=== PATIENT | female | born 1945 | race Caucasian/White ===

== ENCOUNTER 2018-03-24 09:46 | Emergency (ER) | payer MEDICARE, SELFPAY ==
[2018-03-24 09:53] VITALS: BP 178/83; PULSE 94; RESP 21; TEMP 37; O2SAT 95
--- NOTE | 2018-03-24 10:10 | DI.CT_ITS ---
SYMPTOMS/DIAGNOSIS: HEADACHE NONCONTRAST HEAD CT: There are no prior comparison exams. There is beam-hardening artifact seen along the skull. This could obscure a subtle hemorrhage. No mass or infarct is seen. The ventricles are normal in size. There is mild atrophy and mild white matter changes, consistent with small vessel disease. There is no evidence of fracture. There is mucus retention in the maxillary and some ethmoid sinuses. IMPRESSION: No acute abnormality.
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
--- NOTE | 2018-03-24 10:54 | DI.VRAD_ITS ---
EXAM: CT Head Without Intravenous Contrast EXAM DATE/TIME: 03/24/2018 10:11 AM CLINICAL HISTORY: 72 years old, female; Pain; Additional info: Headache TECHNIQUE: Axial computed tomography images of the head/brain without intravenous contrast. Coronal and sagittal reformatted images were created and reviewed. COMPARISON: No relevant prior studies available. FINDINGS: Limitations: There is extensive beam hardening artifact around the calvarium. There is asymmetric hyperdensity at the origin of the left sylvian fissure (8:19, 20). This could represent artifact versus subarachnoid hemorrhage. MRI may be helpful for further evaluation. Brain: There is asymmetric hyperdensity at the origin of the left sylvian fissure (8:19, 20). This could represent artifact versus subarachnoid hemorrhage. MRI may be helpful for further evaluation. There is moderate diffuse heterogeneity of the white matter attenuation, consistent with chronic white matter ischemic changes. Moderate cerebral atrophy Ventricles: Normal. No ventriculomegaly. Bones/joints: Normal. No acute fracture. Sinuses: Opacities in the ethmoid sinuses and maxillary sinuses and sphenoid sinuses may represent sinusitis. Mastoid air cells: Normal as visualized. No mastoid effusion. Soft tissues: Normal. IMPRESSION: 1. Opacities in the ethmoid sinuses and maxillary sinuses and sphenoid sinuses may represent sinusitis. 2. There is asymmetric extensive beam hardening artifact around the calvarium. There is hyperdensity at the origin of the left sylvian fissure (8:19, 20). This could represent artifact versus subarachnoid hemorrhage. MRI may be helpful for further evaluation. Dictated and Authenticated by: Clau Quintana MD. Ordering:ISH OSORIO MD
[2018-03-24 11:32] VITALS: BP 132/87; PULSE 74; RESP 20; TEMP 37.4
== END 2018-03-24 11:33 | disposition home or self-care (01) ==
PROVIDERS: Emergency Provider Emergency Medicine; PCP Family Medicine
DX: R42 Dizziness and giddiness (principal); R51 Headache; W54.1XXA Struck by dog, initial encounter; W01.198A Fall on same level from slipping, tripping and stumbling with subsequent striking against other object, initial encounter
CPT/HCPCS: 99284; 70450

== ENCOUNTER 2018-11-02 22:25 | Emergency (ER) | payer MEDICARE, SELFPAY ==
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
[2018-11-02 22:27] VITALS: BP 169/93; PULSE 101; RESP 16; TEMP 36.7; O2SAT 98
--- NOTE | 2018-11-02 22:35 | DI.CT_ITS ---
SYMPTOM/DIAGNOSIS: ALTERED MENTAL STATUS CRANIAL CT 11/02/[address] was performed. There is moderate generalized cerebral atrophy and there are prominent areas of periventricular white matter decreased attenuation consistent with microvascular ischemic changes. No evidence of acute intracranial hemorrhage, mass effect or midline shift. Mastoid air cells and paranasal sinuses are generally clear with minimal mucoperiosteal thickening noted in maxillary and ethmoid sinuses. The orbits appear intact. CONCLUSION: No evidence of acute intracranial process.
--- NOTE | 2018-11-02 22:35 | DI.RAD_ITS ---
SYMPTOM/DIAGNOSIS: ALTERED MENTAL STATUS PA AND LATERAL CHEST: 11/02/18 The heart is not enlarged. There is suggestion of increased radiodensity in the right lower lung field, no definite abnormality identified on the lateral view. Comparison with previous examination of 2006 shows fairly similar appearance at that time. No definite acute change. No pleural effusion seen. CONCLUSION: No evidence of acute disease.
[2018-11-02 22:43] LABS: Abs Immature Grans 0.01 k/cumm (0.0-0.09); Absolute Basophil Count 0.04 k/cumm (0.0-0.2); Absolute Eosinophil Count 0.16 k/cumm (0.0-0.7); Absolute Lymphocyte Count 1.82 k/cumm (1.2-3.4); Absolute Monocyte Count 0.52 k/cumm (0.11-0.7); Absolute Neutrophil Count 3.35 k/cumm (1.2-6.7); Basophils % 0.7; Eosinophils % 2.7; HCT 38.7 % (36.0-46.0); HGB 12.7 g/dL (12.0-15.5); Immature Grans % 0.2; Lymphocytes % 30.8; Mean Corp. HGB Concentration 32.8 g/dL (32.0-36.0); Mean Corpuscular Hemoglobin 30.8 pg (27.0-33.0); Mean Corpuscular Volume 93.7 fL (80-95); Mean Platelet Volume 10.6 fL (8.0-11.0); Monocytes % 8.8; Neutrophils % 56.8; Platelet Count 232 x1000/uL (130-400); RBC 4.13 m/cumm (4.00-5.20); RBC Distribution Width 12.7 % (11.7-14.6)
[2018-11-02 22:56] LABS: ALT 18 U/L (12-78); AST 13 U/L (15-37); Albumin 3.6 g/dL (3.4-5.0); Alkaline Phosphatase 72 U/L (46-116); Anion Gap 7.9 mmol/L (3-11); BUN 19 mg/dL (7-18); Bilirubin, Total 0.3 mg/dL (0.2-1.0); CO2 28.1 mmol/L (21.0-32.0); CREATININE 0.77 mg/dL (0.55-1.02); Calcium 8.7 mg/dL (8.5-10.1); Chloride 105 mmol/L (98-107); Glucose 126 mg/dL (70-100); Magnesium 1.9 mg/dL (1.8-2.4); Potassium 3.8 mmol/L (3.5-5.1); Sodium 141 mmol/L (136-145); Total Protein 6.8 g/dL (6.4-8.2)
[2018-11-02 23:08] LABS: ETHANOL BLOOD < 3.0 mg/dL (<3)
[2018-11-02 23:22] LABS: PTT Activated 23.6 sec (21.0-31.4); Prothrombin Time 10.2 sec (9.3-11.0)
--- NOTE | 2018-11-02 23:31 | DI.VRAD_ITS ---
EXAM: XR Chest, 2 Views EXAM DATE/TIME: 11/02/2018 10:36 PM CLINICAL HISTORY: 73 years old, female; Signs and symptoms; Other: Altered mental status TECHNIQUE: Imaging protocol: XR of the chest, 2 views. COMPARISON: No relevant prior studies available. FINDINGS: Lungs: Vague opacity within the medial aspect of the right lower lobe. Pleural space: No pneumothorax. No sizable pleural effusion. Heart/Mediastinum: No cardiomegaly. Bones/joints: Unremarkable. IMPRESSION: Vague opacity within the medial aspect of the right lower lobe, which may represent pneumonia in the correct clinical setting. Alternatively, this could just represent overlapping shadows of vascular markings with rib shadows. Dictated and Authenticated by: Karthik Vides MD. Ordering:ISH Martins MD
--- NOTE | 2018-11-02 23:36 | DI.VRAD_ITS ---
EXAM: CT Head Without Contrast EXAM DATE/TIME: 11/02/2018 10:36 PM CLINICAL HISTORY: 73 years old, female; Signs and symptoms; Altered mental status/memory loss TECHNIQUE: Imaging protocol: Axial computed tomography images of the head/brain without contrast. Coronal and sagittal reformatted images were created and reviewed. COMPARISON: CT HEAD WO 03/24/2018 10:21 AM FINDINGS: Brain: Age-related involutional changes and chronic microvascular ischemic disease. No evidence for acute transcortical infarct. No mass effect or midline shift. No extra-axial collection. No acute intracranial hemorrhage. Basal cisterns are patent. Ventricles: Normal. No ventriculomegaly. Bones/joints: Unremarkable. No acute fracture. Sinuses: Hypoplastic right maxillary sinus. Mastoid air cells: Visualized mastoid air cells are unremarkable. No mastoid effusion. Soft tissues: Unremarkable. IMPRESSION: No evidence for acute transcortical infarct, acute intracranial hemorrhage, or mass effect. Dictated and Authenticated by: Karthik Vides MD. Ordering:ISH Martins MD
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
[2018-11-02 23:56] LABS: Bilirubin Negative (Negative); Blood Negative (Negative); Clarity Clear; Glucose Negative (Negative); Ketones Trace mg/dL (Negative); Leukocyte Esterase Moderate (Negative); Nitrite Negative (Negative); Specific Gravity 1.015 (1.005-1.025); Urobilinogen 0.2 EU/dL (Up TO 0.2)
[2018-11-02] MEDS: QUEtiapine 25 MG TAB PO (23:57)
[2018-11-03 00:11] LABS: Epithelial Cells Moderate HPF (Negative); RBC Negative (0-2); WBC >50 HPF (0-5)
[2018-11-03 00:12] LABS: Bacteria Rare HPF (Negative); C & S Indicated? C&S Done As Ordered; Casts Negative LPF (Negative); Mucus Negative (Negative); Other Cells Moderate Renal (Negative)
--- NOTE | 2018-11-04 09:46 | NUR.NOTE ---
Nursing Note: Faxed to PCP office all the information from the patient ED visit for follow up. Sophie Colindres .
== END 2018-11-03 00:06 | disposition home or self-care (01) ==
PROVIDERS: Emergency Provider Emergency Medicine; PCP Family Medicine
DX: F03.91 Unspecified dementia, unspecified severity, with behavioral disturbance (principal)
CPT/HCPCS: 36415; 80053; 99285; 70450; 71046; 80320; 81003; 81015; 83735; 85025; 85610; 85730; 87086; 99284

== ENCOUNTER 2019-10-26 21:23 | Emergency (ER) | payer MEDICARE, SELFPAY ==
--- NOTE | 2019-10-26 21:14 | ED.GENADUL_ITS ---
Discharge Plan Disposition Patient Disposition: HOME Condition: Good Discharge Details Chief Complaint: RespSymp Clinical Impression: Dementia Primary Care Provider: Shan Gracia ED Provider: Genaro Aguayo Home Meds and New Rx's Prescriptions: Continued fluticasone propion-salmeterol [Advair Diskus] 1 PUFF blister with device 1 inh DAILY RF: 0 multivitamin 1 EACH capsule 1 tab PO DAILY RF: 0 ibuprofen [Advil] 200 MG tablet 1 tab PO PRN RF: 0 memantine 5 mg Tablet 2 tab PO BID RF: 0 meclizine 25 mg tablet 25 mg PO TID PRN (Reason: dizziness) Qty: 14 RF: 0 quetiapine [Seroquel] 25 mg tablet 25 mg PO QPM Qty: 10 RF: 0 Discharge Instructions Additional Instructions: Please return later today for drive-through testing for COVID. Orders will be faxed from the ED. We will have care management contact you later today to see what assistance we can offer. Contact primary care physician as well for help as well as to confirm her medications that she should be taking. Keep her in quarantine for the time being. Return to ED for mental status changes, difficulty breathing, vomiting, other concerns or problems. Referrals: Shan Gracia [Primary Care Provider] - Medical Decision Making Patient brought here after her was found at home. She has a slight cough. She is unable to give us any of the history. Since it is unknown what from and since patient unable to give history elected to screen for potential COVID. Her saturations are normal. Her exam is unremarkable. Laboratory studies were obtained and a noncontrast CT ordered. Patient's white count is normal with no evidence of lymphopenia. Platelet count is normal. Kidney function and liver function unremarkable. Ferritin, LDH, C- reactive protein are all normal. Noncontrast CT chest being preliminary read by radiology as 3 small groundglass nodules in the right lung. No consolidation. No pleural effusion. Also noted to have asymmetric left retroareolar glandular tissue. In the pandemic of COVID the groundglass nodules are very nonspecific but cannot completely rule out COVID by CT. Given her normal laboratory studies and lack of symptoms I doubt this is the case. I was able to get a hold of the patient's son Rafael who is in [facility]. It would be best for the patient not to be admitted to this hospital. It would be best for her to go back home with assistant shift supervisor and return tomorrow for COVID testing. She should remain in isolation in the meantime. At some point, she will need follow-up of the breast findings if they decide to pursue that. Son has agreed to come and get her tonight but it will take him 3 to 4 hours to get here. Plan will be to discharge the patient into the son's care. His brother is coming from [place]. Will have care management get in touch with the sons for further assistance as needed. Will have patient return for formal COVID testing tomorrow to drive-through test. 03:11 -son, Rafael, has arrived. I have spoken to him about drive-through testing for COVID in the morning. I have also discussed with him having our care managers contact him in the morning to see what help we can provide. Patient's primary care physician should be contacted in the morning as well. Otherwise, quarantine the patient until testing has returned. Continue medications as before. Return to ED if any issues. Medical Records Medical records reviewed: Yes I reviewed the patient's medical records. Lab Data Lab results reviewed: Yes I reviewed the patient's lab results. HPI General Mode of arrival: EMS . Date/Time Provider Initiated Documentation: 10/26/19 21:27 . Information obtained by: patient, EMS and old records reviewed . HPI Narrative: Patient brought in by EMS for evaluation after her was found at home. Patient is demented and unable to give us any information. By EMS report the police found her wandering the streets of [place] very late this afternoon. They brought her home and was not there but it was thought maybe he had gone out to look for her or shopping. Police left her there with the understanding to come back in a couple hours and check on her. When they arrived the was still not present. They then entered the house and found him in the back bedroom. [employer] Engineer biomedical instrument technician on scene is also a miter grinder operator in the community. He called to speak to me regarding what to do with this patient. He noticed that she did have a cough but otherwise no complaints. She is demented and not able to provide any type of history. It was agreed to bring her here for screening. Mental health worker was present as well. They know her from the community. We are attempting to get family notification. Related Data Home Medications Medication Instructions Recorded Confirmed fluticasone propion-salmeterol 1 inh DAILY 01/01/13 03/24/18 [Advair Diskus] multivitamin 1 tab PO DAILY 01/01/13 03/24/18 ibuprofen [Advil] 1 tab PO PRN 01/18/14 03/24/18 meclizine 25 mg PO TID PRN #14 tab 03/24/18 memantine 2 tab PO BID 03/24/18 03/24/18 quetiapine [Seroquel] 25 mg PO QPM #10 tab 11/02/18 Previous Rx's Medication Instructions Recorded meclizine 25 mg PO TID PRN #14 tab 03/24/18 quetiapine [Seroquel] 25 mg PO QPM #10 tab 11/02/18 Allergies Allergy/AdvReac Type Severity Reaction Status Date / Time amoxicillin Allergy Severe Hives Unverified 03/24/18 09:56 Penicillins Allergy Severe Hives Unverified 03/24/18 09:56 morphine Allergy Unknown Unverified 03/24/18 09:56 acetaminophen [From Percocet] AdvReac Nausea Unverified 03/24/18 09:56 hydrocodone [Hydrocodone] AdvReac Nausea Unverified 03/24/18 09:56 oxycodone HCl [From Percocet] AdvReac Nausea Unverified 03/24/18 09:56 General DIONICIO: 3 Review of Systems Narrative: Unobtainable due to dementia. [facility] Medical History Anxiety (Chronic) Dementia (Chronic) Surgical History No significant past surgical history (Acute) Social History Smoking/Tobacco Use Status: Never Alcohol Intake: never Drug use: Never Substance use type: does not use Do you feel safe in your relationship?: Yes Additional Social history: unable to assess. Exam Narrative Exam Narrative: Vitals: Afebrile. Slightly elevated blood pressure. Otherwise normal vital signs. Normal room air pulse oximetry. Const: WDWN elderly female in NAD. HEENT: NC/AT. Normal facial exam. Normal OP. Eyes: Normal conjunctiva and sclera. Neck: Supple. Trachea midline. Lungs: Normal respiratory effort. Lungs are clear. Cor: RRR without murmur/gallop. Good radial pulses. GI: Soft. NT/ND. No guarding or rebound. Neuro: A+O x 1. Normal speech, mentation, gait. Cranial nerves II - XII grossly intact. No gross motor or sensory deficit. Ext: No C/C/E. Skin: Warm and dry without rash.
[2019-10-26 21:15] VITALS: BP 143/85; PULSE 89; RESP 19; TEMP 36.5; O2SAT 99
--- NOTE | 2019-10-26 21:15 | DI.CT_ITS ---
EXAM: CT CHEST WO CLINICAL HISTORY: demented; cough; no other history. TECHNIQUE: Imaging protocol: Axial computed tomography images were obtained and coronal and sagittal reformatted images were created and reviewed. COMPARISON: No exams were available for comparison FINDINGS: Tracheobronchial tree: Patent where visualized. Mediastinum and Rose Marie: No dominant adenopathy or fluid collection. Pulmonary parenchyma: No consolidation or dominant measurable mass. No architectural distortion. Ther e are a few tiny ground-glass nodules seen in the right lung. There is a 5 mm nodule seen laterally in the right lower lobe (series 4, image 360). There is a 4 mm nodule seen in the right middle lobe measuring 4 mm (series 4, image 377). Pleura: No effusion or pneumothorax. Heart: The heart is not dilated. Mild coronary artery calcifications are seen. No pericardial effusi on. Aorta: Thoracic aorta non-dilated. Atherosclerosis. Upper abdomen: Unremarkable. Lymph nodes: Within normal limits. Bones:Degenerative changes. Soft tissues: There is asymmetric dense tissue seen in the retroareolar region of the left breast. A mass cannot be excluded. Correlation with mammogram is recommended. IMPRESSION: 1. No CT chest findings to suggest COVID- 19 are present. 2. Nonspecific subcentimeter ground-glass nodules in the right lung. An infectious or inflammatory p rocess cannot be excluded. DATA REPOSITORY: All CT scans at this facility are submitted to the National Radiology Data Registry (NRDR) Dose Index Registry (DIR) with the [employer] (ACR). RADIATION OPTIMIZATION: All CT scans at this facility use at least one of these dose optimization te chniques: automated exposure control; mA and/or kV adjustment per patient size (includes targeted exa ms where dose is matched to clinical indication); or iterative reconstruction.
[2019-10-26 21:45] LABS: Abs Immature Grans 0.01 k/cumm (0.0-0.09); Absolute Basophil Count 0.03 k/cumm (0.0-0.2); Absolute Eosinophil Count 0.03 k/cumm (0.0-0.7); Absolute Lymphocyte Count 1.59 k/cumm (1.2-3.4); Absolute Monocyte Count 0.57 k/cumm (0.11-0.7); Absolute Neutrophil Count 4.46 k/cumm (1.2-6.7); Basophils % 0.4; Eosinophils % 0.4; HGB 12.5 g/dL (12.0-15.5); Immature Grans % 0.1 %; Lymphocytes % 23.8; Mean Corp. HGB Concentration 33.8 g/dL (32.0-36.0); Mean Corpuscular Hemoglobin 31.7 pg (27.0-33.0); Mean Corpuscular Volume 93.9 fL (80-95); Mean Platelet Volume 10.3 fL (8.0-11.0); Monocytes % 8.5; Neutrophils % 66.8; Platelet Count 257 x1000/uL (130-400); RBC 3.94 m/cumm (4.00-5.20); RBC Distribution Width 12.7 % (11.7-14.6); White Blood Cell Count 6.69 k/cumm (4.4-10.8)
[2019-10-26 21:59] LABS: ALT 21 U/L (14-59); AST 15 U/L (15-37); Alkaline Phosphatase 53 U/L (46-116); Anion Gap 3.1 mmol/L (3-11); BUN 24 mg/dL (7-18); Bilirubin, Total 0.8 mg/dL (0.2-1.0); C-Reactive Protein 0.13 mg/dL (0.0-0.3); CO2 27.9 mmol/L (21.0-32.0); CREATININE 0.81 mg/dL (0.55-1.02); Calcium 9.1 mg/dL (8.5-10.1); Chloride 104 mmol/L (98-107); Glucose 109 mg/dL (74-106); LDH 135 U/L (81-234); Potassium 3.2 mmol/L (3.5-5.1); Sodium 135 mmol/L (136-145); Total Protein 7.2 g/dL (6.4-8.2)
[2019-10-26 22:23] LABS: Ferritin 127 ng/mL (8-252)
--- NOTE | 2019-10-26 22:28 | NUR.NOTE ---
Arrives via [place] for evaluation. Pt has hx of dementia, was found out wandering, brought home by PD, found in home for unknown reason. Reported cough, pt brought in for evaluation. Pt arrives alert, unable to state why she is here. Pt asking to go home. LSCTA. Denies pain. Pt wearing multiple shirts. Has no c/o.
--- NOTE | 2019-10-26 22:39 | DI.VRAD_ITS ---
PROCEDURE INFORMATION: Exam: CT Chest Without Contrast Exam date and time: 10/26/2019 9:30 PM Age: 74 years old Clinical indication: Patient HX: Cough, demented: No other HX. Suspected for covid-19 TECHNIQUE: Imaging protocol: Computed tomography of the chest without contrast. Radiation optimization: All CT scans at this facility use at least one of these dose optimization techniques: automated exposure control; mA and/or kV adjustment per patient size (includes targeted exams where dose is matched to clinical indication); or iterative reconstruction. COMPARISON: CR XR CHEST 2V PA LATERAL 11/02/2018 10:59 PM FINDINGS: Lungs: No consolidation. There is a 5 mm ground-glass nodule in the right lower lobe , series 4, image 360. An additional 3 mm right lower lobe nodule is seen, series 4, image 366. There is a 4 mm ground-glass nodule in the right middle lobe, series 4, image 377. Pleural space: No pleural effusion. No pneumothorax. Heart: No cardiomegaly. No pericardial effusion. Mild coronary artery calcifications. Aorta: No aortic aneurysm. Lymph nodes: No pathologically enlarged lymph nodes. Liver: Subcentimeter hypodensity is seen in the liver, too small to characterize, series 2, image 55. Gallbladder and bile ducts: Gallstones are seen. Kidneys and ureters: Small hypodensity in the right kidney is likely a cyst. There are parapelvic renal cysts. Bones/joints: Unremarkable. No acute fracture. Soft tissues: There is asymmetric left retroareolar glandular tissue. An underlying mass cannot be excluded. IMPRESSION: 1. Three subcentimeter ground-glass nodules within the right lung. These are nonspecific, but may be due to an infectious or inflammatory etiology. No large areas of ground-glass opacity or consolidation are seen. Note that CT may be negative in the early stages of COVID-19. 2. Additional incidental/non-emergent findings, as above. Dictated and Authenticated by: Robbie Shell MD. Ordering:TAMIKA Lam MD
--- NOTE | 2019-10-27 00:24 | NUR.NOTE ---
Plan for pt son to come bean picker machine operator. Provided with juice.
[2019-10-27 03:12] VITALS: BP 131/69; PULSE 77; RESP 16; TEMP 37; O2SAT 98
--- NOTE | 2019-10-27 03:14 | NUR.NOTE ---
Pt intermittently sleeping on right side, even, unlabored resp. No coughing noted. Pt continues to have no c/o. Son in to pick pt up. to exit with steady gait.
--- NOTE | 2019-10-27 03:21 | NUR.NOTE ---
Olivier out to speak to pt son and review DC instructions
--- NOTE | 2019-10-28 09:18 | PDOC.ERCMPRO ---
- If Service Date Differs Date of service: 10/27/19 Time of Service: 09:18 Care Management Progress Note At the request of ED provider, MARIAM outreaches to patient's son Rafael at tel. number [phone]. There is no answer; message left offering assistance as needed.
== END 2019-10-27 03:20 | disposition home or self-care (01) ==
PROVIDERS: Emergency Provider Emergency Medicine; PCP Family Medicine
DX: F03.90 Unspecified dementia, unspecified severity, without behavioral disturbance, psychotic disturbance, mood disturbance, and anxiety (principal); R05 Cough; Z04.89 Encounter for examination and observation for other specified reasons; R92.8 Other abnormal and inconclusive findings on diagnostic imaging of breast; Z63.4 Disappearance and death of family member
CPT/HCPCS: 71250; 80053; 99284; 82728; 83615; 85025; 86140

== ENCOUNTER 2019-10-27 08:37 | Outpatient (CLI) | payer MEDICARE, SELFPAY ==
[2019-10-29 23:11] LABS: SARS-CoV-2 RNA Undetected (Undetected); SARS-CoV-2 Specimen Source Nasopharynx
== END 2019-10-27 08:57 ==
PROVIDERS: PCP Family Medicine; Visit Provider Emergency Medicine
DX: Z03.818 Encounter for observation for suspected exposure to other biological agents ruled out (principal)
CPT/HCPCS: U0003

== ENCOUNTER 2019-11-02 07:07 | Inpatient (IN) | payer MEDICARE, SELFPAY ==
[2019-11-02] VITALS (34 sets, daily range): BP systolic 94–146; BP diastolic 54–83; PULSE 63–98; RESP 14–18; TEMP 36–37; O2SAT 92–99
--- NOTE | 2019-11-02 07:08 | DI.RAD_ITS ---
EXAM: XR CHEST 1V IN DI DEPT CLINICAL HISTORY: <altered, combative> TECHNIQUE: 2D digital imaging was performed. COMPARISON: XR CHEST 2V PA LATERAL from 11/02/2018 CT CHEST WO from 10/26/2019 FINDINGS: LUNGS: The lungs are not well inflated. The questioned increased densities at the left lung base whi ch could represent pneumonia. No effusion is seen. There is no evidence of pulmonary edema. HEART: Normal. MEDIASTINUM: Normal. IMPRESSION: Question of left lower lobe pneumonia. DATA REPOSITORY: RADIATION DOSE DELIVERED:
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
[2019-11-02] MEDS: OLANZapine 10 MG VIAL IM (07:21)
[2019-11-02] MEDS: LORazepam 2 MG/ML VIAL IM (07:24)
[2019-11-02] MEDS: Haloperidol 5 MG/ML VIAL IM (07:25)
--- NOTE | 2019-11-02 08:13 | DI.CT_ITS ---
EXAM: CT HEAD WO CLINICAL HISTORY: altered, psychotic episode. TECHNIQUE: Imaging Protocol: Axial computed tomography images with coronal and sagittal reformatted images were created and reviewed COMPARISON: CT HEAD WO from 11/02/2018 FINDINGS: Ventricles and Extra axial spaces: Normal in size and morphology for the patient's age. Hemorrhage: None. Cerebral parenchyma: White matter changes of small vessel disease. Midline shift: None. Brainstem/Cerebellum: Normal. Calvarium: Normal. Visualized Paranasal sinuses/Mastoids: Clear. Soft Tissues: Mild mucosal thickening. IMPRESSION: No acute intracranial process. RADIATION DOSE DELIVERED: DATA REPOSITORY: All CT scans at this facility are submitted to the National Radiology Data Registry (NRDR) Dose Index Registry (DIR) with the [employer] (ACR). RADIATION OPTIMIZATION: All CT scans at this facility use at least one of these dose optimization te chniques: automated exposure control; mA and/or kV adjustment per patient size (includes targeted exa ms where dose is matched to clinical indication); or iterative reconstruction.
--- NOTE | 2019-11-02 08:20 | DI.VRAD_ITS ---
PROCEDURE INFORMATION: Exam: XR Chest, 1 View Exam date and time: 11/02/2019 8:14 AM Age: 74 years old Clinical indication: Other: Altered, combative TECHNIQUE: Imaging protocol: XR of the chest Views: 1 view. COMPARISON: CR XR CHEST 2V PA LATERAL 11/02/2018 10:59 PM FINDINGS: Lungs: Opacity in the medial left base may represent atelectasis or pneumonia. Pleural space: Unremarkable. No pleural effusion. No pneumothorax. Heart/Mediastinum: Unremarkable. No cardiomegaly. Bones/joints: Unremarkable. IMPRESSION: Opacity in the medial left base may represent atelectasis or pneumonia. Dictated and Authenticated by: Clau Quintana MD. Ordering:STEVAN Meza MD
--- NOTE | 2019-11-02 08:22 | DI.VRAD_ITS ---
PROCEDURE INFORMATION: Exam: CT Head Without Contrast Exam date and time: 11/02/2019 7:59 AM Age: 74 years old Clinical indication: Other: Altered psychotic episode TECHNIQUE: Imaging protocol: Computed tomography of the head without contrast. Radiation optimization: All CT scans at this facility use at least one of these dose optimization techniques: automated exposure control; mA and/or kV adjustment per patient size (includes targeted exams where dose is matched to clinical indication); or iterative reconstruction. COMPARISON: CT HEAD WO 11/02/2018 10:46 PM FINDINGS: Brain: There is moderate diffuse heterogeneity of the white matter attenuation, consistent with chronic white matter ischemic changes. Moderate cerebral atrophy No acute intracranial hemorrhage. Ventricles: Normal. No ventriculomegaly. Bones/joints: Unremarkable. No acute fracture. Sinuses: Mucosal thickening in the right maxillary sinus, left frontal sinus, and ethmoid sinuses may represent mild sinusitis Mastoid air cells: Visualized mastoid air cells are well aerated. Soft tissues: Unremarkable. IMPRESSION: No acute intracranial hemorrhage. Dictated and Authenticated by: Clau Quintana MD. Ordering:STEVAN Meza MD
[2019-11-02 08:31] LABS: Bilirubin Negative (Negative); Blood Negative (Negative); Clarity Sl Cloudy (Clear); Glucose Negative (Negative); Ketones Negative (Negative); Leukocyte Esterase Small (Negative); Nitrite Negative (Negative); Specific Gravity 1.015 (1.005-1.025); Urobilinogen 0.2 EU/dL (Up TO 0.2)
[2019-11-02 08:40] LABS: HCO3 (Venous) 31 mmol/L (22-28); O2 Sat (Venous) 93 % (70-80); TCO2 (Venous) 28 mmol/L (22-29); pCO2 (Venous) 47 mm/Hg (34-47); pH (Venous) 7.42 (7.35-7.45); pO2 (Venous) 65 mm/Hg (28-44)
[2019-11-02 08:44] LABS: Abs Immature Grans 0.01 k/cumm (0.0-0.09); Absolute Basophil Count 0.01 k/cumm (0.0-0.2); Absolute Eosinophil Count 0.03 k/cumm (0.0-0.7); Absolute Lymphocyte Count 0.74 k/cumm (1.2-3.4); Absolute Monocyte Count 0.34 k/cumm (0.11-0.7); Absolute Neutrophil Count 3.96 k/cumm (1.2-6.7); Basophils % 0.2; Eosinophils % 0.6; HCT 33.6 % (36.0-46.0); HGB 11.1 g/dL (12.0-15.5); Immature Grans % 0.2 %; Lymphocytes % 14.5; Mean Corpuscular Hemoglobin 31.2 pg (27.0-33.0); Mean Corpuscular Volume 94.4 fL (80-95); Monocytes % 6.7; Neutrophils % 77.8; Platelet Count 221 x1000/uL (130-400); RBC 3.56 m/cumm (4.00-5.20); RBC Distribution Width 12.8 % (11.7-14.6); White Blood Cell Count 5.09 k/cumm (4.4-10.8)
[2019-11-02 08:47] LABS: RBC 0-2 HPF (0-2)
[2019-11-02 08:48] LABS: Bacteria Many HPF (Negative); Casts 3-5 Fine Granular LPF (Negative); Crystals Rare Amorphous HPF (Negative); Epithelial Cells Few HPF (Negative); Mucus Trace (Negative); Other Cells Rare Renal (Negative)
[2019-11-02 08:49] LABS: C & S Indicated? Yes
[2019-11-02 08:53] LABS: Ammonia 34 umol/L (11-32)
[2019-11-02 09:04] LABS: Salicylate < 2.8 mg/dL (2.8-20.0)
[2019-11-02 09:05] LABS: Acetaminophen < 2 ug/mL (10-30)
[2019-11-02 09:06] LABS: ALT 15 U/L (14-59); AST 12 U/L (15-37); Albumin 2.8 g/dL (3.4-5.0); Alkaline Phosphatase 45 U/L (46-116); Anion Gap 5.6 mmol/L (3-11); BUN 14 mg/dL (7-18); Bilirubin, Total 0.4 mg/dL (0.2-1.0); CO2 30.4 mmol/L (21.0-32.0); CREATININE 0.72 mg/dL (0.55-1.02); Calcium 8.4 mg/dL (8.5-10.1); Chloride 109 mmol/L (98-107); Glucose 139 mg/dL (74-106); Potassium 3.4 mmol/L (3.5-5.1); Sodium 145 mmol/L (136-145); TSH (W/Ref FT4) 1.91 uIU/mL (0.36-3.74); Total Protein 5.7 g/dL (6.4-8.2)
[2019-11-02 09:19] LABS: ETHANOL BLOOD < 3.0 mg/dL (<3)
[2019-11-02 09:35] LABS: *AMPHETAMINES SCREEN URINE Negative (Negative); *BARBITURATES SCREEN URINE Negative (Negative); *BENZODIAZEPINES SCREEN URINE Negative (Negative); Cannabinoids THC Negative (Negative); Cocaine Screen,Urine Negative (Negative); METHADONE URINE SCREEN Negative (Negative); OPIATES URINE SCREEN Negative (Negative)
[2019-11-02 09:37] LABS: Lactate 0.6 mmol/L (0.6-1.4)
[2019-11-02 09:40] LABS: Tricyclic Antidepressants Negative (Negative)
[2019-11-02 09:52] LABS: C-Reactive Protein 0.12 mg/dL (0.0-0.3)
[2019-11-02] MEDS: cefTRIAXone 1 GM/50 ML BAG IVPB (09:53)
[2019-11-02 10:14] LABS: Procalcitonin < 0.1 ng/mL
[2019-11-02] MEDS: POTASSIUM CHLORIDE 20 MEQ/100 ML BAG 50 MEQ IVPB (10:33)
[2019-11-02] MEDS: Heparin 5,000 UNITS/ML VIAL 5000 UNITS SC ×2 (12:29→19:45)
--- NOTE | 2019-11-02 13:56 | W.PM.HP.N ---
Date of service: 11/02/19 Time of Service: 13:56 Assessment and Plan Assessment and plan (1) Dementia with behavioral disturbance: Status: Acute Assessment and plan: It is not clear if the patient was compliant with her therapy at home. For now, will continue her on seroquel 25 mg PO TID with 25 mg PO TID prn for agitation. Will consult palliative care and consider psychiatry consult. (2) Suspected COVID-19 virus infection: Status: Acute Assessment and plan: Patient placed on airborne/contact precautions. Follow up COVID-19 testing (3) Acute UTI: Status: Acute Assessment and plan: Will continue ceftriaxone initiated in ED for a total of 3 days. (4) Opacity of lung on imaging study: Status: Acute Assessment and plan: Suspect that this represents atelectasis. WIll monitor respiratory status and for any evidence of dysphagia. (5) Asthma: Status: Chronic Assessment and plan: Not in acute exacerbation. will give symbicort in place of advair and write for prn albuterol. (6) Hypokalemia: Status: Acute Assessment and plan: Replete and check in am. (7) Hyperammonemia: Status: Acute Assessment and plan: Consider US RUQ. For now, treat with lactulose. (8) DVT prophylaxis: Status: Acute Assessment and plan: Heparin SC (9) Discharge planning issues: Status: Acute Assessment and plan: Full code Palliative care consulted. Will need placement. History of Present Illness History of Present Illness Chief Complaint: Combative behavior, wandering Narrative: Ms Em is a 74 year old female with PMHx of Alzheimer's dementia, anxiety, asthma, osteoarthritis, who was brought to [facility] ED today by ambulance for agitated/violent behavior at home, as well as worsening confusion and wandering behavior. The patient cannot provide this history, so the majority of the history below is based on the account of events by the ED provider. The patient used to live with her , who 2 weeks ago of unclear cause. Her family came from [place] to help. The patient was tested within the last week for COVID-19 as outpatient and was negative - per ED provider, this was done because it was not clear what her had of. We do not know her 's COVID status. We do not know how the patient's family traveled from [place], if they had any sick contacts, or what their COVID status is. The patient required sedation with haldol, ativan, and zyprexa in ED as well as physical restraints. At the time of my evaluation, Ms Em is calm, cooperative, eating bites from her lunch tray. From the medical stand point, the patient's workup reveals hypokalemia, slightly elevated ammonia, normal procalcitonin and CRP. Ruben UA is consistent with a very mild UTI. The family cannot take care of her at home and she will need to be placed. We were asked to admit the patient for further care. Review of Systems Narrative: Attempt at ROS was made. The patient denies dizziness, headache, chest pain, shortness of breath, nausea, abdominal pain. [facility] Medical History (Updated 11/02/19 @ 17:02 by Sarah Mcnamara MD) Anxiety (Chronic) Asthma (Chronic) Dementia (Chronic) Osteoarthritis (Chronic) Surgical History No significant past surgical history (Acute) Family History (Updated 11/02/19 @ 16:53 by Sarah Mcnamara MD) Other Patient unable to provide medical history Social History Smoking/Tobacco Use Status: Never Alcohol Intake: never Drug use: Never Substance use type: does not use Do you feel safe in your relationship?: Yes Additional Social history: unable to assess. Meds Home Medications and Allergies Home Medications Medication Instructions Recorded Confirmed Type fluticasone propion-salmeterol 1 inh DAILY 01/01/13 11/02/19 History [Advair Diskus] memantine 1 tab PO BID 03/24/18 11/02/19 History quetiapine [Seroquel] 25 mg PO DAILY PRN PRN 11/02/19 11/02/19 History quetiapine [Seroquel] 25 mg PO TID 11/02/19 11/02/19 History Allergies Allergy/AdvReac Type Severity Reaction Status Date / Time amoxicillin Allergy Severe Hives Unverified 11/02/19 07:39 Penicillins Allergy Severe Hives Unverified 11/02/19 07:39 morphine Allergy Unknown Unverified 11/02/19 07:39 acetaminophen [From Percocet] AdvReac Nausea Unverified 11/02/19 07:39 hydrocodone [Hydrocodone] AdvReac Nausea Unverified 11/02/19 07:39 oxycodone HCl [From Percocet] AdvReac Nausea Unverified 11/02/19 07:39 Exam Narrative Exam Narrative: General: Pleasant and cooperative (at the time of my visit with her) elderly female, sitting up in bed, eating bites of her lunch with her eyes closed, A&Ox1 Neurological: A&ox1, no obvious focal deficits Psychiatric: mildly anxious, but cooperative and not combative at the time of our visit Skin: visible skin intact; very long toe nails with evidence of onychomycosis HEENT: Atraumatic, normocephalic, eyes closed (not opening when asked), MMM, no JVD, goiter, or lymphadenopathy Cardiovascular: RRR, no m/r/g Lungs: CTAB Gastrointestinal: soft, nontender, nondistended Genitourinary: deferred Extremities: no e/c/c BLE's, toe nails as above Results Imaging Additional studies: CXR: Opacity in the medial left base may represent atelectasis or pneumonia. CT head w/o contrast: No acute intracranial hemorrhage. EKG: motion artifact, HR 88, no acute ischemia, nonspecific ST-T changes Labs Result diagrams: 11/02/19 08:35 11/02/19 08:35 Labs: Laboratory Results - last 24 hr 11/02/19 11/02/19 11/02/19 08:25 08:25 08:35 WBC RBC Hgb Hct MCV MCH MCHC RDW Plt Count MPV Immature Gran % Neutrophils % Lymphocytes % Monocytes % Eosinophils % Basophils % Absolute Neutrophils Absolute Lymphocytes Absolute Monocytes Absolute Eosinophils Absolute Basophils VBG pH VBG pCO2 VBG pO2 VBG HCO3 VBG Total CO2 VBG O2 Saturation VBG Base Excess Sodium 145 Potassium 3.4 L Chloride 109 H Carbon Dioxide 30.4 Anion Gap 5.6 BUN 14 Creatinine 0.72 Estimated GFR/1.73 m2 >= 60.00 Glucose 139 H Lactate Calcium 8.4 L Total Bilirubin 0.4 AST 12 L ALT 15 Alkaline Phosphatase 45 L Ammonia C-Reactive Protein Total Protein 5.7 L Albumin 2.8 L Procalcitonin TSH 1.91 Urine Color Yellow Urine Clarity Sl cloudy Urine pH 8.0 Ur Specific [place] 1.015 Urine Protein Trace H Urine Ketones Negative Urine Blood Negative Urine Nitrite Negative Urine Bilirubin Negative Urine Urobilinogen 0.2 Ur Leukocyte Esterase Small H Urine RBC 0-2 Urine WBC 10-20 H Ur Epithelial Cells Few Urine Crystals Rare amorphous Urine Bacteria Many Urine Casts 3-5 fine granular Urine Mucus Trace Urine Other Rare renal Ur Culture Indicated? Yes Urine Glucose Negative Salicylates Urine Opiates Screen Negative Urine Methadone Screen Negative Acetaminophen Ur Barbiturates Screen Negative Ur Tricyclics Screen Negative Ur Amphetamines Screen Negative U Benzodiazepines Scrn Negative Urine Cocaine Screen Negative Ur THC Screen Negative Ethyl Alcohol < 3.0 11/02/19 11/02/19 11/02/19 08:35 08:35 08:35 WBC 5.09 RBC 3.56 L Hgb 11.1 L Hct 33.6 L MCV 94.4 MCH 31.2 MCHC 33.0 RDW 12.8 Plt Count 221 MPV 10.0 Immature Gran % 0.2 Neutrophils % 77.8 Lymphocytes % 14.5 Monocytes % 6.7 Eosinophils % 0.6 Basophils % 0.2 Absolute Neutrophils 3.96 Absolute Lymphocytes 0.74 L Absolute Monocytes 0.34 Absolute Eosinophils 0.03 Absolute Basophils 0.01 VBG pH 7.42 VBG pCO2 47 VBG pO2 65 H VBG HCO3 31 H VBG Total CO2 28 VBG O2 Saturation 93 H VBG Base Excess 6.0 H Sodium Potassium Chloride Carbon Dioxide Anion Gap BUN Creatinine Estimated GFR/1.73 m2 Glucose Lactate Calcium Total Bilirubin AST ALT Alkaline Phosphatase Ammonia 34 H C-Reactive Protein Total Protein Albumin Procalcitonin TSH Urine Color Urine Clarity Urine pH Ur Specific [place] Urine Protein Urine Ketones Urine Blood Urine Nitrite Urine Bilirubin Urine Urobilinogen Ur Leukocyte Esterase Urine RBC Urine WBC Ur Epithelial Cells Urine Crystals Urine Bacteria Urine Casts Urine Mucus Urine Other Ur Culture Indicated? Urine Glucose Salicylates Urine Opiates Screen Urine Methadone Screen Acetaminophen Ur Barbiturates Screen Ur Tricyclics Screen Ur Amphetamines Screen U Benzodiazepines Scrn Urine Cocaine Screen Ur THC Screen Ethyl Alcohol 11/02/19 11/02/19 11/02/19 08:35 09:30 09:30 WBC RBC Hgb Hct MCV MCH MCHC RDW Plt Count MPV Immature Gran % Neutrophils % Lymphocytes % Monocytes % Eosinophils % Basophils % Absolute Neutrophils Absolute Lymphocytes Absolute Monocytes Absolute Eosinophils Absolute Basophils VBG pH VBG pCO2 VBG pO2 VBG HCO3 VBG Total CO2 VBG O2 Saturation VBG Base Excess Sodium Potassium Chloride Carbon Dioxide Anion Gap BUN Creatinine Estimated GFR/1.73 m2 Glucose Lactate 0.6 Calcium Total Bilirubin AST ALT Alkaline Phosphatase Ammonia C-Reactive Protein 0.12 Total Protein Albumin Procalcitonin < 0.1 TSH Urine Color Urine Clarity Urine pH Ur Specific [place] Urine Protein Urine Ketones Urine Blood Urine Nitrite Urine Bilirubin Urine Urobilinogen Ur Leukocyte Esterase Urine RBC Urine WBC Ur Epithelial Cells Urine Crystals Urine Bacteria Urine Casts Urine Mucus Urine Other Ur Culture Indicated? Urine Glucose Salicylates < 2.8 Urine Opiates Screen Urine Methadone Screen Acetaminophen < 2 Ur Barbiturates Screen Ur Tricyclics Screen Ur Amphetamines Screen U Benzodiazepines Scrn Urine Cocaine Screen Ur THC Screen Ethyl Alcohol Last Vital Signs Temp 37.0 C 11/02/19 12:04 Pulse 82 11/02/19 12:04 Resp 18 11/02/19 12:04 BP 123/69 11/02/19 12:04 Pulse Ox 98 11/02/19 12:04 COVID-19 Screening Traveled to [place] from one of the affected countries or regions?: NO Recent travel in the [place] within the last 8 weeks?: No Recent out of the country travel within the last 8 weeks?: No Exposure or possible exposure to illness during travel?: Yes Had IN PERSON contact w/suspected or confirmed C-19 person: Yes Have you had the following symptoms in the past few days?: No Symptoms noted since travel?: No Symptoms Medical treatment received for symptoms/illness related to travel?: none
[2019-11-02] MEDS: LORazepam 2 MG/ML VIAL 1 MG IVP (19:15)
[2019-11-02] MEDS: Normal Saline Flush 10 ML SYR IVP ×2 (19:20→19:45)
[2019-11-02] MEDS: QUEtiapine 25 MG TAB PO (19:52)
[2019-11-02] MEDS: LORazepam 0.5 MG TAB PO (20:00)
[2019-11-03] MEDS: Normal Saline Flush 10 ML SYR IVP (00:20)
[2019-11-03] MEDS: LORazepam 2 MG/ML VIAL 1 MG IVP ×2 (00:20→10:35)
--- NOTE | 2019-11-03 01:20 | PGE_ITS ---
Date of Service Date of service: 11/02/19 Time of Service: 20:00 Assessment and Plan Assessment and plan (1) Dementia with behavioral disturbance: Status: Chronic Assessment and plan: This is a 74-year-old lady requiring medications for severe agitation and with her severe dementia and change in situation being in the hospital and having her who recently being her primary caregiver, her behavior has escalated. We will continue restraints as needed for safety and medicate for agitation. Subjective Subjective Interval history since last seen: This is a 74-year-old severely demented female patient who had been put in four-point restraints in the ED while being evaluated before admission. She escalated again this evening requiring 2 nurses to restrain her and placeher in restraints to avoid patient harming herself or others. She had received Haldol IM 5 mg and several sedatives earlier in the day and had been calm up to this point. When I was called I agreed with restraints and adjusted her meds with the nurses to try to maintain sedation with Seroquel on a scheduled dosing and as needed dosing along with Ativan IV or p.o. If needed we would use Haldol IM 5 mg again. The patient was very physical striking out at the nurses and at risk for harming herself and others. She is in isolation having come from the respiratory unit and there was limited physical access with me evaluating her through the nurses interpretation and report of physical findings and vital signs. I did not physically visit the patient since she was calm and out of restraints at the time I was in the building. Objective Objective Clinical Data: Abnormal lab results 11/02/19 11/02/19 11/02/19 Range/Units 08:25 08:35 08:35 RBC (4.00-5.20) m/cumm Hgb (12.0-15.5) g/dL Hct (36.0-46.0) % Absolute Lymphocytes (1.2-3.4) k/cumm VBG pO2 (28-44) mm/Hg VBG HCO3 (22-28) mmol/L VBG O2 Saturation (70-80) % VBG Base Excess (-3-3) mmol/L Potassium 3.4 L (3.5-5.1) mmol/L Chloride 109 H (98-107) mmol/L Glucose 139 H (74-106) mg/dL Calcium 8.4 L (8.5-10.1) mg/dL AST 12 L (15-37) U/L Alkaline Phosphatase 45 L (46-116) U/L Ammonia 34 H (11-32) umol/L Total Protein 5.7 L (6.4-8.2) g/dL Albumin 2.8 L (3.4-5.0) g/dL Urine Protein Trace H (Negative) mg/dL Ur Leukocyte Esterase Small H (Negative) Urine WBC 10-20 H (0-5) HPF 11/02/19 11/02/19 Range/Units 08:35 08:35 RBC 3.56 L (4.00-5.20) m/cumm Hgb 11.1 L (12.0-15.5) g/dL Hct 33.6 L (36.0-46.0) % Absolute Lymphocytes 0.74 L (1.2-3.4) k/cumm VBG pO2 65 H (28-44) mm/Hg VBG HCO3 31 H (22-28) mmol/L VBG O2 Saturation 93 H (70-80) % VBG Base Excess 6.0 H (-3-3) mmol/L Potassium (3.5-5.1) mmol/L Chloride (98-107) mmol/L Glucose (74-106) mg/dL Calcium (8.5-10.1) mg/dL AST (15-37) U/L Alkaline Phosphatase (46-116) U/L Ammonia (11-32) umol/L Total Protein (6.4-8.2) g/dL Albumin (3.4-5.0) g/dL Urine Protein (Negative) mg/dL Ur Leukocyte Esterase (Negative) Urine WBC (0-5) HPF Vital Signs Temperature 36.9 C 11/02/19 18:11 Temperature Source Tympanic 11/02/19 18:11 Pulse 74 11/02/19 18:11 Pulse Rhythm Regular 11/02/19 14:47 Pulse 68 11/02/19 11:10 Respiratory Rate 18 11/02/19 18:11 Respiratory Effort 11/02/19 19:30 Respiratory Depth Normal 11/02/19 19:30 Respiratory Pattern Normal 11/02/19 19:30 Blood Pressure 145/72 H 11/02/19 18:11 Blood Pressure Mean 65 11/02/19 11:01 Blood Pressure Position Supine 11/02/19 07:09 Pulse Oximetry 99 11/02/19 18:11 Oxygen Delivery Method Room Air 11/02/19 18:11 Oxygen Flow Rate 0 11/02/19 18:11 Pain Level 1 11/02/19 18:11 Intake & Output 11/02/19 11/02/19 11/03/19 11:59 23:59 11:59 Intake Total 60 / 460 400 / 460 Output Total 1700 / 1700 Balance 60 / -1240 -1300 / -1240 Weight 52.8 kg 53.3 kg Intake: IV 60 / 170 110 / 170 Oral 290 / 290 Output: Urine 1700 / 1700 Other: Urine Color Yellow Urine Appearance Cloudy Urine Odor Normal Voiding Methods Bedside Commode Laboratory Results WBC 5.09 k/cumm (4.4-10.8) 11/02/19 08:35 RBC 3.56 m/cumm (4.00-5.20) L 11/02/19 08:35 Hgb 11.1 g/dL (12.0-15.5) L 11/02/19 08:35 Hct 33.6 % (36.0-46.0) L 11/02/19 08:35 MCV 94.4 fL (80-95) 11/02/19 08:35 MCH 31.2 pg (27.0-33.0) 11/02/19 08:35 MCHC 33.0 g/dL (32.0-36.0) 11/02/19 08:35 RDW 12.8 % (11.7-14.6) 11/02/19 08:35 Plt Count 221 x1000/uL (130-400) 11/02/19 08:35 MPV 10.0 fL (8.0-11.0) 11/02/19 08:35 Immature Gran % 0.2 % 11/02/19 08:35 Neutrophils % 77.8 11/02/19 08:35 Lymphocytes % 14.5 11/02/19 08:35 Monocytes % 6.7 11/02/19 08:35 Eosinophils % 0.6 11/02/19 08:35 Basophils % 0.2 11/02/19 08:35 Absolute Neutrophils 3.96 k/cumm (1.2-6.7) 11/02/19 08:35 Absolute Lymphocytes 0.74 k/cumm (1.2-3.4) L 11/02/19 08:35 Absolute Monocytes 0.34 k/cumm (0.11-0.7) 11/02/19 08:35 Absolute Eosinophils 0.03 k/cumm (0.0-0.7) 11/02/19 08:35 Absolute Basophils 0.01 k/cumm (0.0-0.2) 11/02/19 08:35 VBG pH 7.42 (7.35-7.45) 11/02/19 08:35 VBG pCO2 47 mm/Hg (34-47) 11/02/19 08:35 VBG pO2 65 mm/Hg (28-44) H 11/02/19 08:35 VBG HCO3 31 mmol/L (22-28) H 11/02/19 08:35 VBG Total CO2 28 mmol/L (22-29) 11/02/19 08:35 VBG O2 Saturation 93 % (70-80) H 11/02/19 08:35 VBG Base Excess 6.0 mmol/L (-3-3) H 11/02/19 08:35 Sodium 145 mmol/L (136-145) 11/02/19 08:35 Potassium 3.4 mmol/L (3.5-5.1) L 11/02/19 08:35 Chloride 109 mmol/L (98-107) H 11/02/19 08:35 Carbon Dioxide 30.4 mmol/L (21.0-32.0) 11/02/19 08:35 Anion Gap 5.6 mmol/L (3-11) 11/02/19 08:35 BUN 14 mg/dL (7-18) 11/02/19 08:35 Creatinine 0.72 mg/dL (0.55-1.02) 11/02/19 08:35 Estimated GFR/1.73 m2 >= 60.00 (mL/min/1.73m2) 11/02/19 08:35 Glucose 139 mg/dL (74-106) H 11/02/19 08:35 Lactate 0.6 mmol/L (0.6-1.4) 11/02/19 09:30 Calcium 8.4 mg/dL (8.5-10.1) L 11/02/19 08:35 Total Bilirubin 0.4 mg/dL (0.2-1.0) 11/02/19 08:35 AST 12 U/L (15-37) L 11/02/19 08:35 ALT 15 U/L (14-59) 11/02/19 08:35 Alkaline Phosphatase 45 U/L (46-116) L 11/02/19 08:35 Ammonia 34 umol/L (11-32) H 11/02/19 08:35 C-Reactive Protein 0.12 mg/dL (0.0-0.3) 11/02/19 09:30 Total Protein 5.7 g/dL (6.4-8.2) L 11/02/19 08:35 Albumin 2.8 g/dL (3.4-5.0) L 11/02/19 08:35 Procalcitonin < 0.1 ng/mL 11/02/19 09:30 TSH 1.91 uIU/mL (0.36-3.74) 11/02/19 08:35 Urine Color Yellow (Yellow) 11/02/19 08:25 Urine Clarity Sl cloudy (Clear) 11/02/19 08:25 Urine pH 8.0 (5-8) 11/02/19 08:25 Ur Specific [place] 1.015 (1.005-1.025) 11/02/19 08:25 Urine Protein Trace mg/dL (Negative) H 11/02/19 08:25 Urine Ketones Negative mg/dL (Negative) 11/02/19 08:25 Urine Blood Negative (Negative) 11/02/19 08:25 Urine Nitrite Negative (Negative) 11/02/19 08:25 Urine Bilirubin Negative (Negative) 11/02/19 08:25 Urine Urobilinogen 0.2 EU/dL (Up TO 0.2) 11/02/19 08:25 Ur Leukocyte Esterase Small (Negative) H 11/02/19 08:25 Urine RBC 0-2 HPF (0-2) 11/02/19 08:25 Urine WBC 10-20 HPF (0-5) H 11/02/19 08:25 Ur Epithelial Cells Few HPF (Negative) 11/02/19 08:25 Urine Crystals Rare amorphous HPF (Negative) 11/02/19 08:25 Urine Bacteria Many HPF (Negative) 11/02/19 08:25 Urine Casts 3-5 fine granular LPF (Negative) 11/02/19 08:25 Urine Mucus Trace (Negative) 11/02/19 08:25 Urine Other Rare renal (Negative) 11/02/19 08:25 Ur Culture Indicated? Yes 11/02/19 08:25 Urine Glucose Negative mg/dL (Negative) 11/02/19 08:25 Salicylates < 2.8 mg/dL (2.8-20.0) 11/02/19 08:35 Urine Opiates Screen Negative (Negative) 11/02/19 08:25 Urine Methadone Screen Negative (Negative) 11/02/19 08:25 Acetaminophen < 2 ug/mL (10-30) 11/02/19 08:35 Ur Barbiturates Screen Negative (Negative) 11/02/19 08:25 Ur Tricyclics Screen Negative (Negative) 11/02/19 08:25 Ur Amphetamines Screen Negative (Negative) 11/02/19 08:25 U Benzodiazepines Scrn Negative (Negative) 11/02/19 08:25 Urine Cocaine Screen Negative (Negative) 11/02/19 08:25 Ur THC Screen Negative (Negative) 11/02/19 08:25 Ethyl Alcohol < 3.0 mg/dL (<3) 11/02/19 08:35
[2019-11-03 05:58] VITALS: BP 138/74; PULSE 70; RESP 18; TEMP 36.8; O2SAT 98
[2019-11-03 06:58] LABS: Absolute Basophil Count 0.01 k/cumm (0.0-0.2); Absolute Eosinophil Count 0.15 k/cumm (0.0-0.7); Absolute Lymphocyte Count 1.49 k/cumm (1.2-3.4); Absolute Monocyte Count 0.33 k/cumm (0.11-0.7); Absolute Neutrophil Count 2.63 k/cumm (1.2-6.7); Basophils % 0.2; Eosinophils % 3.3; HCT 34.2 % (36.0-46.0); HGB 10.9 g/dL (12.0-15.5); Lymphocytes % 32.3; Mean Corp. HGB Concentration 31.9 g/dL (32.0-36.0); Mean Corpuscular Hemoglobin 30.5 pg (27.0-33.0); Mean Corpuscular Volume 95.8 fL (80-95); Mean Platelet Volume 10.2 fL (8.0-11.0); Monocytes % 7.2; Platelet Count 240 x1000/uL (130-400); RBC 3.57 m/cumm (4.00-5.20); RBC Distribution Width 12.7 % (11.7-14.6); White Blood Cell Count 4.61 k/cumm (4.4-10.8)
[2019-11-03 07:23] LABS: Anion Gap 4.3 mmol/L (3-11); BUN 16 mg/dL (7-18); CO2 30.7 mmol/L (21.0-32.0); CREATININE 0.71 mg/dL (0.55-1.02); Calcium 8.5 mg/dL (8.5-10.1); Chloride 109 mmol/L (98-107); Glucose 117 mg/dL (74-106); Magnesium 2.1 mg/dL (1.8-2.4); Potassium 3.9 mmol/L (3.5-5.1); Sodium 144 mmol/L (136-145)
[2019-11-03 07:25] LABS: Ammonia 18 umol/L (11-32)
--- NOTE | 2019-11-03 08:08 | INITIAL_ITS ---
- If Service Date Differs Date of service: 11/03/19 Time of Service: 08:08 Care Management Initial Assess REASON FOR HOSPITALIZATION:: Dementia and behavioral disturbance PAST MEDICAL HISTORY/PAST SURGICAL HISTORY:: Medical History (Updated 11/02/19 @ 17:02 by Sarah Mcnamara MD). Anxiety (Chronic). Asthma (Chronic). Dementia (Chronic). Osteoarthritis (Chronic). Surgical History . No significant past surgical history (Acute) PREVIOUS FUNCTIONAL STATUS/SOCIAL/FAMILY SUPPORTS:: Rosa lives in a single family home in [facility]. Until recently, she lived with her who has been taking care of her. She has had dementia for the past 3 years and, according to her son Jorge Alberto and daughter in law Margo, she is becoming aggressive and combative. Rosa's was found a week ago and Jorge Alberto and Margo flew up from [place] to try to find placement for Rosa. CURRENT FUNCTIONAL STATUS:: Rosa has been isolated to rule out Covid-19. She had a negative test a week ago and is again negative.She has been combative with staff and has required sedation and restraints. Per family, Rosa's dementia is severe and she is no longer able to recognize her children or other family members. CM contacted the [facility] in [place] with whom Jorge Alberto has been working for possible placement but they are not accepting admissions at this time. ADVANCE DIRECTIVES:: none on file Has patient been provided with information about the portal?: No Did the patient sign up for the portal?: No CODE STATUS:: Full Code INSURANCE COVERAGE / FINANCIAL ISSUES:: Medicare. AARP [employer] CURRENT HOME/COMMUNITY SERVICES/EQUIPMENT:: None at this time PRIMARY CARE PHYSICIAN:: Shan Gracia POTENTIAL DISCHARGE NEEDS:: Rosa will require placement PATIENT/FAMILY EDUCATION NEEDS:: Discharge plan, limitations, follow up plan, Ask Me Three ANTICIPATED BARRIERS TO DISCHARGE:: Rosa will likely need placement TRANSPORTATION:: to be determined PLAN:: Rosa will likely require long goods drier placement. Her son Dontrell [facility] [place] [facility] for [facility] placement but they are not accepting admissions at this time.Jorge Alberto has applied for emergency guardianship but at the moment, there is no financial DPOA to make decisions or disperse funds to provide a payer source.CM will continue to support patient, family and discharge and/or placement needs.
[2019-11-03] MEDS: cefTRIAXone 1 GM/50 ML BAG IVPB (08:34)
--- NOTE | 2019-11-03 10:13 | PHACLINREV_ITS ---
Pharmacy Admission Review - Admission Clinical Review (Last Updated 11/02/19 @ 16:53 by Sarah Mcnamara MD) Suspected COVID-19 virus infection (Acute) Discharge planning issues (Acute) DVT prophylaxis (Acute) Hyperammonemia (Acute) Hypokalemia (Acute) Psychotic episode (Acute) Opacity of lung on imaging study (Acute) Acute UTI (Acute) amoxicillin Allergy (Severe, Unverified 11/02/19 07:39) Hives Penicillins Allergy (Severe, Unverified 11/02/19 07:39) Hives morphine Allergy (Unknown, Unverified 11/02/19 07:39) acetaminophen [From Percocet] Adverse Reaction (Unverified 11/02/19 07:39) Nausea hydrocodone [Hydrocodone] Adverse Reaction (Unverified 11/02/19 07:39) Nausea oxycodone HCl [From Percocet] Adverse Reaction (Unverified 11/02/19 07:39) Nausea Height 5 ft 1.81 in Weight 53.3 kg - Renal Dosing Renal Dosing: BUN 16 mg/dL (7-18) 11/03/19 06:40 Creatinine 0.71 mg/dL (0.55-1.02) 11/03/19 06:40 Medications needing adjustments: Reviewed (CrCl~ 45.8 mL/min Meds-ND) - Anticoagulation Anticoagulation: Hgb 10.9 g/dL (12.0-15.5) L 11/03/19 06:40 Hct 34.2 % (36.0-46.0) L 11/03/19 06:40 Plt Count 240 x1000/uL (130-400) 11/03/19 06:40 Creatinine 0.71 mg/dL (0.55-1.02) 11/03/19 06:40 Medications: Heparin Therapeutic Anticoagulation: N/A - Opiate Usage Evaluate Pain Scale/Pains Meds: N/A Scheduled Bowel Reg ordered if on Opiates?: Yes - Relevant Labs Sodium 144 mmol/L (136-145) 11/03/19 06:40 Potassium 3.9 mmol/L (3.5-5.1) 11/03/19 06:40 Chloride 109 mmol/L (98-107) H 11/03/19 06:40 Magnesium 2.1 mg/dL (1.8-2.4) 11/03/19 06:40 C-Reactive Protein 0.12 mg/dL (0.0-0.3) 11/02/19 09:30 Electrolytes, C-Reactive P, ESR: N/A - DM Control DM Control: Glucose 117 mg/dL (74-106) H 11/03/19 06:40 Insulin Dosing: N/A - Heart Failure/WA EF%, NOLVIA's, B-Blockers, Diuretics: N/A - BP Control BP Control: Blood Pressure 138/74 If elevated: N/A - Qtc Review If Elevated: Reviewed (QTc-457 Seroquel (home Med)) - IV to PO Switch IV Medications: Reviewed (On Rocephin for suspected UTI ,to run for 3 days.) - Home Meds Home Med List reviewed: Reviewed (Memantine not restarted) - Current meds Current Medication Order Review: Reviewed (OK) - Comments Comments/Follow Ups: Patient has severe demntia and rcenly (2 weeks ago) lost her /hospice care 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 Patient has been combative here, consult requested. Patient tested COVID negative last week.
[2019-11-03] MEDS: Lactulose 20 GM/30 ML CUP PO (10:35)
[2019-11-03] MEDS: QUEtiapine 25 MG TAB PO ×2 (10:35→19:58)
[2019-11-03 10:54] VITALS: BP 135/81; PULSE 85; RESP 18; TEMP 36.5; O2SAT 95
--- NOTE | 2019-11-03 11:25 | W.PM.PROGNOT ---
Date of Service Date of service: 11/03/19 Time of Service: 11:27 Assessment and Plan Assessment and plan (1) Dementia with behavioral disturbance: Start date: 11/03/19 Start time: 11:34 Status: Chronic Assessment and plan: Confused, oriented xself. Consult psychiatry for recommendations, recommend seroquel TID 25 mg with Dosing prn for agitation, do not use Ativan unless seroquel does not work. (2) Opacity of lung on imaging study: Start date: 11/03/19 Start time: 11:37 Status: Acute Assessment and plan: No evidence of dysphagia at this time. continue to monitor resp status. (3) Suspected COVID-19 virus infection: Start date: 11/03/19 Start time: 11:37 Status: Acute Assessment and plan: Covid test from 11/01 negative. D/c precautions and move from negative pressure room (4) Hyperammonemia: Start date: 11/03/19 Start time: 11:38 Status: Acute Assessment and plan: Ammonia level today 18, within range. (5) Hypokalemia: Start date: 11/03/19 Start time: 11:42 Status: Resolved Assessment and plan: Resolved 3.9 today. Continue to monitor. (6) Acute UTI: Start date: 11/03/19 Start time: 11:43 Status: Acute Assessment and plan: Continue ceftriaxone Day 2/3. Gram positive antoinette in urine culture at this time. Blood cultures no growth to date. (7) Discharge planning issues: Start date: 11/03/19 Start time: 11:56 Status: Acute Assessment and plan: Patient will need placement, palliative consulted. (8) DVT prophylaxis: Start date: 11/03/19 Start time: 11:57 Status: Acute Assessment and plan: heparin Subcu. above case discussed with Dr. Mcnamara who is in agreement. Subjective Subjective Patient reports: other Interval history since last seen: Continues to require 1:1 observation. Severely demented with aggressiveness, hallucinations and restlessness. Tries get OOB. Consulted for further recommendation on management. Suggests using seroquel TID with PRN dosing. If patient continues behavior after seroquel dosing then try ativan. She is oriented only to self. Will not open eyes, when speaking. Continue observation. Exam Narrative Exam Narrative: General: Pleasant and cooperative elderly female, sitting up in bed, eating bites of her lunch with her eyes closed, A&Ox1 Neurological: A&ox1, no obvious focal deficits Psychiatric: mildly anxious, but cooperative and not combative at the time of our visit Skin: visible skin intact; very long toe nails with evidence of onychomycosis HEENT: Atraumatic, normocephalic, eyes closed (not opening when asked), MMM, no JVD, goiter, or lymphadenopathy Cardiovascular: RRR, no m/r/g Lungs: CTAB Gastrointestinal: soft, nontender, nondistendedd Extremities: no e/c/c BLE's, toe nails as above Objective Objective Clinical Data: Abnormal lab results 11/03/19 11/03/19 Range/Units 06:40 06:40 RBC 3.57 L (4.00-5.20) m/cumm Hgb 10.9 L (12.0-15.5) g/dL Hct 34.2 L (36.0-46.0) % MCV 95.8 H (80-95) fL MCHC 31.9 L (32.0-36.0) g/dL Chloride 109 H (98-107) mmol/L Glucose 117 H (74-106) mg/dL Vital Signs Temperature 36.5 C 11/03/19 10:54 Temperature Source Tympanic 11/03/19 10:54 Pulse 85 11/03/19 10:54 Pulse Rhythm Regular 11/03/19 09:55 Pulse 68 11/02/19 11:10 Respiratory Rate 18 11/03/19 10:54 Respiratory Effort Non-Labored 11/03/19 09:55 Respiratory Depth Normal 11/03/19 09:55 Respiratory Pattern Normal 11/03/19 09:55 Blood Pressure 135/81 11/03/19 10:54 Blood Pressure Mean 65 11/02/19 11:01 Blood Pressure Position Supine 11/02/19 07:09 Pulse Oximetry 95 11/03/19 10:54 Oxygen Delivery Method Room Air 11/03/19 10:54 Oxygen Flow Rate 0 11/03/19 10:54 Pain Level 1 11/02/19 18:11 Intake & Output 11/02/19 11/02/19 11/03/19 11:59 23:59 11:59 Intake Total 60 / 460 400 / 460 50 / 50 Output Total 1700 / 1700 400 / 400 Balance 60 / -1240 -1300 / -1240 -350 / -350 Weight 52.8 kg 53.3 kg Intake: IV 60 / 170 110 / 170 50 / 50 Oral 290 / 290 Output: Urine 1700 / 1700 400 / 400 Other: Urine Color Yellow Yellow Urine Appearance Cloudy Clear Urine Odor Normal Normal Voiding Methods Bedside Commode Bedside Commode Laboratory Results WBC 4.61 k/cumm (4.4-10.8) 11/03/19 06:40 RBC 3.57 m/cumm (4.00-5.20) L 11/03/19 06:40 Hgb 10.9 g/dL (12.0-15.5) L 11/03/19 06:40 Hct 34.2 % (36.0-46.0) L 11/03/19 06:40 MCV 95.8 fL (80-95) H 11/03/19 06:40 MCH 30.5 pg (27.0-33.0) 11/03/19 06:40 MCHC 31.9 g/dL (32.0-36.0) L 11/03/19 06:40 RDW 12.7 % (11.7-14.6) 11/03/19 06:40 Plt Count 240 x1000/uL (130-400) 11/03/19 06:40 MPV 10.2 fL (8.0-11.0) 11/03/19 06:40 Immature Gran % 0.0 % 11/03/19 06:40 Neutrophils % 57.0 11/03/19 06:40 Lymphocytes % 32.3 11/03/19 06:40 Monocytes % 7.2 11/03/19 06:40 Eosinophils % 3.3 11/03/19 06:40 Basophils % 0.2 11/03/19 06:40 Absolute Neutrophils 2.63 k/cumm (1.2-6.7) 11/03/19 06:40 Absolute Lymphocytes 1.49 k/cumm (1.2-3.4) 11/03/19 06:40 Absolute Monocytes 0.33 k/cumm (0.11-0.7) 11/03/19 06:40 Absolute Eosinophils 0.15 k/cumm (0.0-0.7) 11/03/19 06:40 Absolute Basophils 0.01 k/cumm (0.0-0.2) 11/03/19 06:40 VBG pH 7.42 (7.35-7.45) 11/02/19 08:35 VBG pCO2 47 mm/Hg (34-47) 11/02/19 08:35 VBG pO2 65 mm/Hg (28-44) H 11/02/19 08:35 VBG HCO3 31 mmol/L (22-28) H 11/02/19 08:35 VBG Total CO2 28 mmol/L (22-29) 11/02/19 08:35 VBG O2 Saturation 93 % (70-80) H 11/02/19 08:35 VBG Base Excess 6.0 mmol/L (-3-3) H 11/02/19 08:35 Sodium 144 mmol/L (136-145) 11/03/19 06:40 Potassium 3.9 mmol/L (3.5-5.1) 11/03/19 06:40 Chloride 109 mmol/L (98-107) H 11/03/19 06:40 Carbon Dioxide 30.7 mmol/L (21.0-32.0) 11/03/19 06:40 Anion Gap 4.3 mmol/L (3-11) 11/03/19 06:40 BUN 16 mg/dL (7-18) 11/03/19 06:40 Creatinine 0.71 mg/dL (0.55-1.02) 11/03/19 06:40 Estimated GFR/1.73 m2 >= 60.00 (mL/min/1.73m2) 11/03/19 06:40 Glucose 117 mg/dL (74-106) H 11/03/19 06:40 Lactate 0.6 mmol/L (0.6-1.4) 11/02/19 09:30 Calcium 8.5 mg/dL (8.5-10.1) 11/03/19 06:40 Magnesium 2.1 mg/dL (1.8-2.4) 11/03/19 06:40 Total Bilirubin 0.4 mg/dL (0.2-1.0) 11/02/19 08:35 AST 12 U/L (15-37) L 11/02/19 08:35 ALT 15 U/L (14-59) 11/02/19 08:35 Alkaline Phosphatase 45 U/L (46-116) L 11/02/19 08:35 Ammonia 18 umol/L (11-32) 11/03/19 06:40 C-Reactive Protein 0.12 mg/dL (0.0-0.3) 11/02/19 09:30 Total Protein 5.7 g/dL (6.4-8.2) L 11/02/19 08:35 Albumin 2.8 g/dL (3.4-5.0) L 11/02/19 08:35 Procalcitonin < 0.1 ng/mL 11/02/19 09:30 TSH 1.91 uIU/mL (0.36-3.74) 11/02/19 08:35 Urine Color Yellow (Yellow) 11/02/19 08:25 Urine Clarity Sl cloudy (Clear) 11/02/19 08:25 Urine pH 8.0 (5-8) 11/02/19 08:25 Ur Specific [place] 1.015 (1.005-1.025) 11/02/19 08:25 Urine Protein Trace mg/dL (Negative) H 11/02/19 08:25 Urine Ketones Negative mg/dL (Negative) 11/02/19 08:25 Urine Blood Negative (Negative) 11/02/19 08:25 Urine Nitrite Negative (Negative) 11/02/19 08:25 Urine Bilirubin Negative (Negative) 11/02/19 08:25 Urine Urobilinogen 0.2 EU/dL (Up TO 0.2) 11/02/19 08:25 Ur Leukocyte Esterase Small (Negative) H 11/02/19 08:25 Urine RBC 0-2 HPF (0-2) 11/02/19 08:25 Urine WBC 10-20 HPF (0-5) H 11/02/19 08:25 Ur Epithelial Cells Few HPF (Negative) 11/02/19 08:25 Urine Crystals Rare amorphous HPF (Negative) 11/02/19 08:25 Urine Bacteria Many HPF (Negative) 11/02/19 08:25 Urine Casts 3-5 fine granular LPF (Negative) 11/02/19 08:25 Urine Mucus Trace (Negative) 11/02/19 08:25 Urine Other Rare renal (Negative) 11/02/19 08:25 Ur Culture Indicated? Yes 11/02/19 08:25 Urine Glucose Negative mg/dL (Negative) 11/02/19 08:25 Salicylates < 2.8 mg/dL (2.8-20.0) 11/02/19 08:35 Urine Opiates Screen Negative (Negative) 11/02/19 08:25 Urine Methadone Screen Negative (Negative) 11/02/19 08:25 Acetaminophen < 2 ug/mL (10-30) 11/02/19 08:35 Ur Barbiturates Screen Negative (Negative) 11/02/19 08:25 Ur Tricyclics Screen Negative (Negative) 11/02/19 08:25 Ur Amphetamines Screen Negative (Negative) 11/02/19 08:25 U Benzodiazepines Scrn Negative (Negative) 11/02/19 08:25 Urine Cocaine Screen Negative (Negative) 11/02/19 08:25 Ur THC Screen Negative (Negative) 11/02/19 08:25 Ethyl Alcohol < 3.0 mg/dL (<3) 11/02/19 08:35
[2019-11-03 11:28] LABS: COVID-19 RT-PCR Result Negative (Negative)
[2019-11-03] MEDS: Memantine 5 MG TAB PO ×2 (12:38→19:57)
[2019-11-03] MEDS: Heparin 5,000 UNITS/ML VIAL 5000 UNITS SC ×2 (12:38→19:57)
--- NOTE | 2019-11-03 21:31 | W.PALLCONSUL ---
Date of service: 11/03/19 Time of Service: 15:31 History of Present Illness Narrative: Rosa Em is a 74-year-old woman with advanced dementia. She has severe agitation and psychosis. Her primary caregiver was her . No advance planning had been done. They felt it was much too morbid of the subject to consider. Unfortunately Rosa's and it was days before he was discovered. Rosa was unaware that he had . She was brought to [facility] for care once this was discovered. In [facility] she has been extremely agitated. She requires one-on-one care. She has had a psychiatry consult because of her high level of agitation. Please see Dr. Mckenzie's note. I was called to discuss with her son Rosa his CODE STATUS. She is presently a full code since she did not have advanced directives nor D POA designated Her son Dontrell has applied for emergency guardianship. She will need placement once she is medically cleared and stable. This will be difficult at best due to the [place] pandemic. Please note she has now ruled out for [place] Assessment and Plan Assessment and plan (1) Dementia with behavioral disturbance: Status: Chronic (2) Psychotic episode: Status: Acute (3) Anxiety: Status: Chronic (4) Palliative care encounter: Status: Acute Assessment and plan: 74-year-old woman with advanced agitated dementia brought to the hospital after her caregiver/ in their bed. She has required one-on-one during her hospitalization. She remains extremely agitated at times. I spoke with her son Dontrell at [phone]. He has applied for emergency guardianship. We spoke about code status given the fact that his mother has advanced dementia. She will need to placement which will be difficult in these times. I recommend she have her CODE STATUS changed to DNR/DNI and not have aggressive care. Her son who is a previous EMT understands the CODE STATUS issue. I will write a letter in this regard and email a copy to her son at [email or web address] Regarding her present agitation?she has recently been seen by psychiatrist Dr. Mckenzie who has changed her medication back to what she was on prior to admission. I think it is in the patient's best interest to leave this as Dr. Mckenzie has prescribed, rather than having too many cooks in the kitchen. I am happy to see patient again and will check on her electronically and visit her if I feel that my input could be helpful. Thank you very much for this consult Review of Systems Narrative: She is unable to give me a review of systems. [facility] Medical History (Updated 11/04/19 @ 07:29 by Jennie Harden MD, [place]) Anxiety (Chronic) Asthma (Chronic) Dementia (Chronic) Osteoarthritis (Chronic) Surgical History No significant past surgical history (Acute) Family History (Updated 11/02/19 @ 16:53 by Sarah Mcnamara MD) Other Patient unable to provide medical history Social History Smoking/Tobacco Use Status: Never Alcohol Intake: never Drug use: Never Substance use type: does not use Do you feel safe in your relationship?: Yes Additional Social history: unable to assess. Exam Narrative Exam Narrative: She is lying in bed. She is quite peaceful at this time although by multiple reports she has not been peaceful over the last several days. Her heart is irregular. Her breathing is measured and is full. She has no wheezing or rales. Her abdomen is soft nontender. She does not have any edema. Results Last Vital Signs Temp 97.7 F 11/03/19 10:54 Pulse 85 11/03/19 10:54 Resp 18 11/03/19 10:54 BP 135/81 11/03/19 10:54 Pulse Ox 95 11/03/19 10:54 Labs Result diagrams: 11/04/19 06:21 11/04/19 06:21 Labs: Laboratory Results - last 24 hr 11/02/19 11/03/19 11/03/19 11:30 06:40 06:40 WBC 4.61 RBC 3.57 L Hgb 10.9 L Hct 34.2 L MCV 95.8 H MCH 30.5 MCHC 31.9 L RDW 12.7 Plt Count 240 MPV 10.2 Immature Gran % 0.0 Neutrophils % 57.0 Lymphocytes % 32.3 Monocytes % 7.2 Eosinophils % 3.3 Basophils % 0.2 Absolute Neutrophils 2.63 Absolute Lymphocytes 1.49 Absolute Monocytes 0.33 Absolute Eosinophils 0.15 Absolute Basophils 0.01 Sodium 144 Potassium 3.9 Chloride 109 H Carbon Dioxide 30.7 Anion Gap 4.3 BUN 16 Creatinine 0.71 Estimated GFR/1.73 m2 >= 60.00 Glucose 117 H Calcium 8.5 Magnesium 2.1 Ammonia Coronavirus (PCR) Negative 11/03/19 06:40 WBC RBC Hgb Hct MCV MCH MCHC RDW Plt Count MPV Immature Gran % Neutrophils % Lymphocytes % Monocytes % Eosinophils % Basophils % Absolute Neutrophils Absolute Lymphocytes Absolute Monocytes Absolute Eosinophils Absolute Basophils Sodium Potassium Chloride Carbon Dioxide Anion Gap BUN Creatinine Estimated GFR/1.73 m2 Glucose Calcium Magnesium Ammonia 18 Coronavirus (PCR)
[2019-11-03 23:48] VITALS: BP 160/76; PULSE 92; RESP 16; TEMP 37.7; O2SAT 98
[2019-11-04] VITALS (7 sets, daily range): BP systolic 90–119; BP diastolic 56–75; PULSE 66–92; RESP 15–18; TEMP 36.5–37; O2SAT 93–98
[2019-11-04] MEDS: Heparin 5,000 UNITS/ML VIAL 5000 UNITS SC ×3 (04:38→19:30)
[2019-11-04 06:36] LABS: Abs Immature Grans 0.02 k/cumm (0.0-0.09); Absolute Basophil Count 0.01 k/cumm (0.0-0.2); Absolute Eosinophil Count 0.04 k/cumm (0.0-0.7); Absolute Lymphocyte Count 1.29 k/cumm (1.2-3.4); Absolute Monocyte Count 0.56 k/cumm (0.11-0.7); Basophils % 0.1; Eosinophils % 0.5; HCT 38.6 % (36.0-46.0); HGB 12.6 g/dL (12.0-15.5); Immature Grans % 0.2 %; Lymphocytes % 14.8; Mean Corp. HGB Concentration 32.6 g/dL (32.0-36.0); Mean Corpuscular Hemoglobin 30.4 pg (27.0-33.0); Mean Corpuscular Volume 93.2 fL (80-95); Mean Platelet Volume 9.8 fL (8.0-11.0); Monocytes % 6.4; Platelet Count 240 x1000/uL (130-400); RBC 4.14 m/cumm (4.00-5.20); RBC Distribution Width 12.5 % (11.7-14.6); White Blood Cell Count 8.72 k/cumm (4.4-10.8)
[2019-11-04 06:50] LABS: Anion Gap 9.2 mmol/L (3-11); BUN 11 mg/dL (7-18); CO2 26.8 mmol/L (21.0-32.0); CREATININE 0.67 mg/dL (0.55-1.02); Calcium 8.4 mg/dL (8.5-10.1); Chloride 104 mmol/L (98-107); Glucose 122 mg/dL (74-106); Potassium 3.6 mmol/L (3.5-5.1); Sodium 140 mmol/L (136-145)
[2019-11-04] MEDS: QUEtiapine 25 MG TAB PO ×2 (08:15→17:06)
[2019-11-04] MEDS: Memantine 5 MG TAB PO ×2 (08:15→19:29)
[2019-11-04] MEDS: Lactulose 20 GM/30 ML CUP PO (08:16)
[2019-11-04] MEDS: cefTRIAXone 1 GM/50 ML BAG IVPB (08:16)
[2019-11-04] MEDS: Normal Saline Flush 10 ML SYR IVP ×2 (08:16→10:34)
[2019-11-04] MEDS: Budesonide/Formoterol 160/4.5 6 GM 60 PUFF INH IH (09:24)
--- NOTE | 2019-11-04 09:46 | CMPROGNOTE_ITS ---
- If Service Date Differs Date of service: 11/04/19 Time of Service: 09:46 Care Management Progress Note S/O:Rosa was sitting up in a chair when CM met with her. PT was present but unable to assess Rosa as she could not be aroused. She was sitting up but would not open her eyes or cooperate with trying to stand or walk. Per the [facility] NURSE who has bee with her for the past 2 days performing 1:1 observation, Rosa has been sleeping almost continuously. CM spoke with Dontrell and Margo this morning re: medications. Her current medications are in the same dose and schedule as prior to admission, so are unlikely to be causing her somnolence. CM met briefly in person with Dontrell to give him the LTM application and obtain a signature for SB2. CM will continue to seek placement for Rosa. A: Rosa is a 74 year old woman admitted on 11/02/19 with dementia P:Rosa will likely require emt intermediate placement. Her son Dontrell has been granted emergency guardianship for 14 days. He will attend a remote hearing later this month to seek permanent guardianship. He would be able to disperse funds to provide a payer source for group home care if placement can be found..CM will continue to support patient, family and discharge needs.
--- NOTE | 2019-11-04 10:23 | PT.INNT ---
Date of service: 11/04/19 Time of Service: 10:23 PT Notes Visit Reasons: DEMENTIA WITH BEHAVORIAL DISTURBANCE PT Consult attempted, patient unable to arouse. Will resume PT services tomorrow.
[2019-11-04] MEDS: Normal Saline 500 ML IV (10:34)
[2019-11-04] MEDS: LORazepam 2 MG/ML VIAL 0.5 MG IVP (17:52)
[2019-11-04] MEDS: Haloperidol 5 MG/ML VIAL 2 MG IM/IV (18:31)
[2019-11-04] MEDS: QUEtiapine 25 MG TAB 12.5 MG PO (19:29)
--- NOTE | 2019-11-04 21:30 | RES.FACE_ITS ---
Date of service: 11/04/19 Time of Service: 21:30 Restraint Face to Face Time of Face to Face Face to Face: Time of Face to Face: 21:30 Patient's Immediate Situation Requiring Restraints/Seclusion: Harm to Staff & Others Patient Response to Restraints: Tolerating without Problems Patient's Medical & Behavioral Condition: Dementia w/ severe agitation exhibiting aggressive physical action towards staff that necessitated nursing placing her in soft limb restraints and requiring emergent use of haldol 2 mg IM given. Patient is now calm and sleeping and physical restraints have been removed. Need for Continuation of Restraints Has Been Assessed: Restraints Termi nated
[2019-11-05] MEDS: Heparin 5,000 UNITS/ML VIAL 5000 UNITS SC (06:17)
[2019-11-05 07:23] VITALS: BP 130/82; PULSE 76; RESP 18; TEMP 36.6; O2SAT 97
[2019-11-05] MEDS: Memantine 5 MG TAB PO ×2 (07:26→20:26)
[2019-11-05] MEDS: Lactulose 20 GM/30 ML CUP PO (07:26)
[2019-11-05] MEDS: Acetaminophen 325 MG TAB 650 MG PO (07:26)
[2019-11-05] MEDS: QUEtiapine 25 MG TAB 12.5 MG PO (07:27)
[2019-11-05] MEDS: cefTRIAXone 1 GM/50 ML BAG IVPB ×2 (07:28→12:01)
[2019-11-05] MEDS: Normal Saline Flush 10 ML SYR IVP (07:28)
--- NOTE | 2019-11-05 09:38 | PT.INNT ---
Date of service: 11/05/19 Time of Service: 09:39 PT Notes Visit Reasons: DEMENTIA WITH BEHAVORIAL DISTURBANCE PT consult held via nursing request.
--- NOTE | 2019-11-05 11:05 | NUR.NOTE ---
11/05/19 Attempted to give oral medications this am. Pills crushed and put into pudding. Patient notified of each medication and agreed to take. After bite was in her mouth, she spit it out, stating it tasted bad. Attempted to give her a small pill whole and she spit it out. Mis Lin DNP CC notifed.
--- NOTE | 2019-11-05 11:11 | NUR.NOTE ---
Nursing Note: 11/05/19- Dr. Carver in to see pt, she had just fallen asleep and had been agitated prior to sleeping, so exam deferred at this time. Dr. Carver stated he will check in tomorrow.
[2019-11-05] MEDS: QUEtiapine 25 MG TAB PO ×4 (12:06→20:26)
--- NOTE | 2019-11-05 12:20 | W.PM.PROGNOT ---
Date of Service Date of service: 11/04/19 Time of Service: 10:00 Assessment and Plan Assessment and plan (1) Acute UTI: Status: Acute Assessment and plan: will complete course of ceftriaxone Day 09/22. Gram positive antoinette in urine culture at this time. Blood cultures no growth to date. (2) Dementia with behavioral disturbance: Status: Chronic Assessment and plan: continue medication adjustment, seroquel increased (3) Palliative care encounter: Status: Acute (4) DVT prophylaxis: Status: Acute Assessment and plan: heparin sq bid (5) Discharge planning issues: Status: Acute Assessment and plan: Patient will need placement, palliative consulted. Subjective Subjective Interval history since last seen: patient remains confused Exam Narrative Exam Narrative: General: Pleasant and uncooperative at times. elderly female, sitting up in chair with her eyes closed, A&Ox1 Neurological: A&ox1, no obvious focal deficits Psychiatric: mildly anxious, but cooperative and not combative at the time of our visit Skin: visible skin intact; very long toe nails with evidence of onychomycosis HEENT: Atraumatic, normocephalic, eyes closed (not opening when asked), MMM, no JVD, goiter, or lymphadenopathy Cardiovascular: RRR, no m/r/g Lungs: CTAB Gastrointestinal: soft, nontender, nondistendedd Extremities: no e/c/c BLE's Objective Objective Clinical Data: Vital Signs Temperature 36.6 C 11/05/19 07:23 Temperature Source Temporal Artery Scan 11/05/19 07:23 Pulse 76 11/05/19 07:23 Pulse Rhythm Regular 11/05/19 08:17 Pulse 68 11/02/19 11:10 Respiratory Rate 18 11/05/19 07:23 Respiratory Effort 11/05/19 08:17 Respiratory Depth Normal 11/05/19 08:17 Respiratory Pattern Normal 11/05/19 08:17 Blood Pressure 130/82 11/05/19 07:23 Blood Pressure Mean 65 11/02/19 11:01 Blood Pressure Position Supine 11/02/19 07:09 Pulse Oximetry 97 11/05/19 07:23 Oxygen Delivery Method Room Air 11/05/19 07:23 Oxygen Flow Rate 0 11/05/19 07:23 Pain Level 0 11/05/19 07:23 Comment 11/04/19 11:15 Intake & Output 11/04/19 11/05/19 11/05/19 23:59 11:59 23:59 Intake Total 90 / 200 0 / 0 Output Total 400 / 1150 Balance -310 / -950 0 / 0 Weight 51.3 kg Intake: Oral 90 / 150 0 / 0 Output: Urine 400 / 1150 Other: Urine Color Yellow Urine Appearance Clear Urine Odor Normal Voiding Methods Toilet Laboratory Results WBC 8.72 k/cumm (4.4-10.8) D 11/04/19 06:21 RBC 4.14 m/cumm (4.00-5.20) 11/04/19 06:21 Hgb 12.6 g/dL (12.0-15.5) 11/04/19 06:21 Hct 38.6 % (36.0-46.0) 11/04/19 06:21 MCV 93.2 fL (80-95) 11/04/19 06:21 MCH 30.4 pg (27.0-33.0) 11/04/19 06:21 MCHC 32.6 g/dL (32.0-36.0) 11/04/19 06:21 RDW 12.5 % (11.7-14.6) 11/04/19 06:21 Plt Count 240 x1000/uL (130-400) 11/04/19 06:21 MPV 9.8 fL (8.0-11.0) 11/04/19 06:21 Immature Gran % 0.2 % 11/04/19 06:21 Neutrophils % 78.0 11/04/19 06:21 Lymphocytes % 14.8 11/04/19 06:21 Monocytes % 6.4 11/04/19 06:21 Eosinophils % 0.5 11/04/19 06:21 Basophils % 0.1 11/04/19 06:21 Absolute Neutrophils 6.80 k/cumm (1.2-6.7) H 11/04/19 06:21 Absolute Lymphocytes 1.29 k/cumm (1.2-3.4) 11/04/19 06:21 Absolute Monocytes 0.56 k/cumm (0.11-0.7) 11/04/19 06:21 Absolute Eosinophils 0.04 k/cumm (0.0-0.7) 11/04/19 06:21 Absolute Basophils 0.01 k/cumm (0.0-0.2) 11/04/19 06:21 VBG pH 7.42 (7.35-7.45) 11/02/19 08:35 VBG pCO2 47 mm/Hg (34-47) 11/02/19 08:35 VBG pO2 65 mm/Hg (28-44) H 11/02/19 08:35 VBG HCO3 31 mmol/L (22-28) H 11/02/19 08:35 VBG Total CO2 28 mmol/L (22-29) 11/02/19 08:35 VBG O2 Saturation 93 % (70-80) H 11/02/19 08:35 VBG Base Excess 6.0 mmol/L (-3-3) H 11/02/19 08:35 Sodium 140 mmol/L (136-145) 11/04/19 06:21 Potassium 3.6 mmol/L (3.5-5.1) 11/04/19 06:21 Chloride 104 mmol/L (98-107) 11/04/19 06:21 Carbon Dioxide 26.8 mmol/L (21.0-32.0) 11/04/19 06:21 Anion Gap 9.2 mmol/L (3-11) 11/04/19 06:21 BUN 11 mg/dL (7-18) 11/04/19 06:21 Creatinine 0.67 mg/dL (0.55-1.02) 11/04/19 06:21 Estimated GFR/1.73 m2 >= 60.00 (mL/min/1.73m2) 11/04/19 06:21 Glucose 122 mg/dL (74-106) H 11/04/19 06:21 Lactate 0.6 mmol/L (0.6-1.4) 11/02/19 09:30 Calcium 8.4 mg/dL (8.5-10.1) L 11/04/19 06:21 Magnesium 2.0 mg/dL (1.8-2.4) 11/04/19 06:21 Total Bilirubin 0.4 mg/dL (0.2-1.0) 11/02/19 08:35 AST 12 U/L (15-37) L 11/02/19 08:35 ALT 15 U/L (14-59) 11/02/19 08:35 Alkaline Phosphatase 45 U/L (46-116) L 11/02/19 08:35 Ammonia 18 umol/L (11-32) 11/03/19 06:40 C-Reactive Protein 0.12 mg/dL (0.0-0.3) 11/02/19 09:30 Total Protein 5.7 g/dL (6.4-8.2) L 11/02/19 08:35 Albumin 2.8 g/dL (3.4-5.0) L 11/02/19 08:35 Procalcitonin < 0.1 ng/mL 11/02/19 09:30 TSH 1.91 uIU/mL (0.36-3.74) 11/02/19 08:35 Urine Color Yellow (Yellow) 11/02/19 08:25 Urine Clarity Sl cloudy (Clear) 11/02/19 08:25 Urine pH 8.0 (5-8) 11/02/19 08:25 Ur Specific [place] 1.015 (1.005-1.025) 11/02/19 08:25 Urine Protein Trace mg/dL (Negative) H 11/02/19 08:25 Urine Ketones Negative mg/dL (Negative) 11/02/19 08:25 Urine Blood Negative (Negative) 11/02/19 08:25 Urine Nitrite Negative (Negative) 11/02/19 08:25 Urine Bilirubin Negative (Negative) 11/02/19 08:25 Urine Urobilinogen 0.2 EU/dL (Up TO 0.2) 11/02/19 08:25 Ur Leukocyte Esterase Small (Negative) H 11/02/19 08:25 Urine RBC 0-2 HPF (0-2) 11/02/19 08:25 Urine WBC 10-20 HPF (0-5) H 11/02/19 08:25 Ur Epithelial Cells Few HPF (Negative) 11/02/19 08:25 Urine Crystals Rare amorphous HPF (Negative) 11/02/19 08:25 Urine Bacteria Many HPF (Negative) 11/02/19 08:25 Urine Casts 3-5 fine granular LPF (Negative) 11/02/19 08:25 Urine Mucus Trace (Negative) 11/02/19 08:25 Urine Other Rare renal (Negative) 11/02/19 08:25 Ur Culture Indicated? Yes 11/02/19 08:25 Urine Glucose Negative mg/dL (Negative) 11/02/19 08:25 Salicylates < 2.8 mg/dL (2.8-20.0) 11/02/19 08:35 Urine Opiates Screen Negative (Negative) 11/02/19 08:25 Urine Methadone Screen Negative (Negative) 11/02/19 08:25 Acetaminophen < 2 ug/mL (10-30) 11/02/19 08:35 Ur Barbiturates Screen Negative (Negative) 11/02/19 08:25 Ur Tricyclics Screen Negative (Negative) 11/02/19 08:25 Ur Amphetamines Screen Negative (Negative) 11/02/19 08:25 U Benzodiazepines Scrn Negative (Negative) 11/02/19 08:25 Urine Cocaine Screen Negative (Negative) 11/02/19 08:25 Ur THC Screen Negative (Negative) 11/02/19 08:25 Ethyl Alcohol < 3.0 mg/dL (<3) 11/02/19 08:35 Coronavirus (PCR) Negative (Negative) 11/02/19 11:30
--- NOTE | 2019-11-05 12:22 | W.PM.PROGNOT ---
Date of Service Date of service: 11/05/19 Time of Service: 12:22 Assessment and Plan Assessment and plan (1) Acute UTI: Status: Acute Assessment and plan: completed course of ceftriaxone Day 09/22. Gram positive antoinette in urine culture at this time. Blood cultures no growth to date. (2) Dementia with behavioral disturbance: Status: Chronic Assessment and plan: continue medication adjustment, seroquel increased (3) DVT prophylaxis: Status: Acute Assessment and plan: patient has been getting out of bed and is likely at her baseline. OLIVER, (4) Palliative care encounter: Status: Acute (5) Discharge planning issues: Status: Acute Assessment and plan: Patient will need placement, palliative consulted. Subjective Subjective Interval history since last seen: medically stable, with stable vital signs. confused overnight, requiring restraints, refuses medications. spitting. Exam Narrative Exam Narrative: General: Pleasant and uncooperative at times. elderly female, sitting up in chair with her eyes closed, A&Ox1 Neurological: A&ox1, no obvious focal deficits Psychiatric: mildly anxious, but cooperative and not combative at the time of our visit Skin: visible skin intact; very long toe nails with evidence of onychomycosis HEENT: Atraumatic, normocephalic, eyes closed (not opening when asked), MMM, no JVD, goiter, or lymphadenopathy Cardiovascular: RRR, no m/r/g Lungs: CTAB Gastrointestinal: soft, nontender, nondistendedd Extremities: no e/c/c BLE's Objective Objective Clinical Data: Vital Signs Temperature 36.6 C 11/05/19 07:23 Temperature Source Temporal Artery Scan 11/05/19 07:23 Pulse 76 11/05/19 07:23 Pulse Rhythm Regular 11/05/19 08:17 Pulse 68 11/02/19 11:10 Respiratory Rate 18 11/05/19 07:23 Respiratory Effort 11/05/19 08:17 Respiratory Depth Normal 11/05/19 08:17 Respiratory Pattern Normal 11/05/19 08:17 Blood Pressure 130/82 11/05/19 07:23 Blood Pressure Mean 65 11/02/19 11:01 Blood Pressure Position Supine 11/02/19 07:09 Pulse Oximetry 97 11/05/19 07:23 Oxygen Delivery Method Room Air 11/05/19 07:23 Oxygen Flow Rate 0 11/05/19 07:23 Pain Level 0 11/05/19 07:23 Comment 11/04/19 11:15 Intake & Output 11/04/19 11/05/19 11/05/19 23:59 11:59 23:59 Intake Total 90 / 200 0 / 0 Output Total 400 / 1150 Balance -310 / -950 0 / 0 Weight 51.3 kg Intake: Oral 90 / 150 0 / 0 Output: Urine 400 / 1150 Other: Urine Color Yellow Urine Appearance Clear Urine Odor Normal Voiding Methods Toilet Laboratory Results WBC 8.72 k/cumm (4.4-10.8) D 11/04/19 06:21 RBC 4.14 m/cumm (4.00-5.20) 11/04/19 06:21 Hgb 12.6 g/dL (12.0-15.5) 11/04/19 06:21 Hct 38.6 % (36.0-46.0) 11/04/19 06:21 MCV 93.2 fL (80-95) 11/04/19 06:21 MCH 30.4 pg (27.0-33.0) 11/04/19 06:21 MCHC 32.6 g/dL (32.0-36.0) 11/04/19 06:21 RDW 12.5 % (11.7-14.6) 11/04/19 06:21 Plt Count 240 x1000/uL (130-400) 11/04/19 06:21 MPV 9.8 fL (8.0-11.0) 11/04/19 06:21 Immature Gran % 0.2 % 11/04/19 06:21 Neutrophils % 78.0 11/04/19 06:21 Lymphocytes % 14.8 11/04/19 06:21 Monocytes % 6.4 11/04/19 06:21 Eosinophils % 0.5 11/04/19 06:21 Basophils % 0.1 11/04/19 06:21 Absolute Neutrophils 6.80 k/cumm (1.2-6.7) H 11/04/19 06:21 Absolute Lymphocytes 1.29 k/cumm (1.2-3.4) 11/04/19 06:21 Absolute Monocytes 0.56 k/cumm (0.11-0.7) 11/04/19 06:21 Absolute Eosinophils 0.04 k/cumm (0.0-0.7) 11/04/19 06:21 Absolute Basophils 0.01 k/cumm (0.0-0.2) 11/04/19 06:21 VBG pH 7.42 (7.35-7.45) 11/02/19 08:35 VBG pCO2 47 mm/Hg (34-47) 11/02/19 08:35 VBG pO2 65 mm/Hg (28-44) H 11/02/19 08:35 VBG HCO3 31 mmol/L (22-28) H 11/02/19 08:35 VBG Total CO2 28 mmol/L (22-29) 11/02/19 08:35 VBG O2 Saturation 93 % (70-80) H 11/02/19 08:35 VBG Base Excess 6.0 mmol/L (-3-3) H 11/02/19 08:35 Sodium 140 mmol/L (136-145) 11/04/19 06:21 Potassium 3.6 mmol/L (3.5-5.1) 11/04/19 06:21 Chloride 104 mmol/L (98-107) 11/04/19 06:21 Carbon Dioxide 26.8 mmol/L (21.0-32.0) 11/04/19 06:21 Anion Gap 9.2 mmol/L (3-11) 11/04/19 06:21 BUN 11 mg/dL (7-18) 11/04/19 06:21 Creatinine 0.67 mg/dL (0.55-1.02) 11/04/19 06:21 Estimated GFR/1.73 m2 >= 60.00 (mL/min/1.73m2) 11/04/19 06:21 Glucose 122 mg/dL (74-106) H 11/04/19 06:21 Lactate 0.6 mmol/L (0.6-1.4) 11/02/19 09:30 Calcium 8.4 mg/dL (8.5-10.1) L 11/04/19 06:21 Magnesium 2.0 mg/dL (1.8-2.4) 11/04/19 06:21 Total Bilirubin 0.4 mg/dL (0.2-1.0) 11/02/19 08:35 AST 12 U/L (15-37) L 11/02/19 08:35 ALT 15 U/L (14-59) 11/02/19 08:35 Alkaline Phosphatase 45 U/L (46-116) L 11/02/19 08:35 Ammonia 18 umol/L (11-32) 11/03/19 06:40 C-Reactive Protein 0.12 mg/dL (0.0-0.3) 11/02/19 09:30 Total Protein 5.7 g/dL (6.4-8.2) L 11/02/19 08:35 Albumin 2.8 g/dL (3.4-5.0) L 11/02/19 08:35 Procalcitonin < 0.1 ng/mL 11/02/19 09:30 TSH 1.91 uIU/mL (0.36-3.74) 11/02/19 08:35 Urine Color Yellow (Yellow) 11/02/19 08:25 Urine Clarity Sl cloudy (Clear) 11/02/19 08:25 Urine pH 8.0 (5-8) 11/02/19 08:25 Ur Specific Reading 1.015 (1.005-1.025) 11/02/19 08:25 Urine Protein Trace mg/dL (Negative) H 11/02/19 08:25 Urine Ketones Negative mg/dL (Negative) 11/02/19 08:25 Urine Blood Negative (Negative) 11/02/19 08:25 Urine Nitrite Negative (Negative) 11/02/19 08:25 Urine Bilirubin Negative (Negative) 11/02/19 08:25 Urine Urobilinogen 0.2 EU/dL (Up TO 0.2) 11/02/19 08:25 Ur Leukocyte Esterase Small (Negative) H 11/02/19 08:25 Urine RBC 0-2 HPF (0-2) 11/02/19 08:25 Urine WBC 10-20 HPF (0-5) H 11/02/19 08:25 Ur Epithelial Cells Few HPF (Negative) 11/02/19 08:25 Urine Crystals Rare amorphous HPF (Negative) 11/02/19 08:25 Urine Bacteria Many HPF (Negative) 11/02/19 08:25 Urine Casts 3-5 fine granular LPF (Negative) 11/02/19 08:25 Urine Mucus Trace (Negative) 11/02/19 08:25 Urine Other Rare renal (Negative) 11/02/19 08:25 Ur Culture Indicated? Yes 11/02/19 08:25 Urine Glucose Negative mg/dL (Negative) 11/02/19 08:25 Salicylates < 2.8 mg/dL (2.8-20.0) 11/02/19 08:35 Urine Opiates Screen Negative (Negative) 11/02/19 08:25 Urine Methadone Screen Negative (Negative) 11/02/19 08:25 Acetaminophen < 2 ug/mL (10-30) 11/02/19 08:35 Ur Barbiturates Screen Negative (Negative) 11/02/19 08:25 Ur Tricyclics Screen Negative (Negative) 11/02/19 08:25 Ur Amphetamines Screen Negative (Negative) 11/02/19 08:25 U Benzodiazepines Scrn Negative (Negative) 11/02/19 08:25 Urine Cocaine Screen Negative (Negative) 11/02/19 08:25 Ur THC Screen Negative (Negative) 11/02/19 08:25 Ethyl Alcohol < 3.0 mg/dL (<3) 11/02/19 08:35 Coronavirus (PCR) Negative (Negative) 11/02/19 11:30
[2019-11-05] MEDS: Ibuprofen 100 MG/5 ML CUP 400 MG PO (12:30)
--- NOTE | 2019-11-05 12:59 | W.NUTCONSULT ---
Date of service: 11/05/19 Time of Service: 13:00 Nutritional Consult ASSESSMENT: 74 year old female admitted with dementia with behavioral disturbance and acute UTI. Appears thin and undernourished. BMI wnl. Per medical chart, usual body weight 65 kg. Has lost over 33 lbs in last 1.5 years. Following regular meal plan, supplemented with ensure BID but has been refusing most meals, supplements. Estimated needs: 4200-5069 kcal, 51-61 g protein, 1600 ml fluid. Currently at risk for malnutrition in context of chronic illness in view of not meeting nutrient needs for > 5 days. If remains full code and continues to refuse meals/beverages will need to consider nutrition support for a positive outcome. Due to advanced dementia, expect continued weight loss and functional decline with no intervention. At risk for skin breakdown. Frequent repositioning essential. NUTRITIONAL DIAGNOSIS: moderate malnutrition due to inadequate intake of nutrients/fluids INTERVENTION: regular meal plan, ensure BID staff attempts to feed pt MONITORING AND EVALUATION: weight, labs, po intake Time Spent in Nutritional Counseling and Treatment: 10 min spent face to face during meal
--- NOTE | 2019-11-05 14:03 | PT.INNT ---
Date of service: 11/05/19 Time of Service: 14:03 PT Notes Visit Reasons: DEMENTIA WITH BEHAVORIAL DISTURBANCE PT Consult attempted held via nursing request. Will attempt tomorrow. Ro Jin, MPT
--- NOTE | 2019-11-05 15:46 | CMPROGNOTE_ITS ---
- If Service Date Differs Date of service: 11/05/19 Time of Service: 15:46 Care Management Progress Note S/O:Rosa was sleeping in the chair when CM came to see her. During the night she became agitated and combative and needed to be restrained and medicated. At the request of the nursing staff's, she was not awakened by CM. Later in the day Rosa did wake up, ate lunch and was much calmer, per report. A referral was sent by CM to [facility] for medication adjustment/management. CM also s upported Dontrell and Margo with the completion of a exterminator Medicaid application. A: Rosa is a 74 year old woman admitted on 11/02/19 with dementia P:Rosa will likely require correction placement. Her son Dontrell has been granted emergency guardianship for 14 days. He will attend a remote hearing later this month to seek permanent guardianship. He would be able to disperse funds to provide a payer source for exterminator care if placement can be found. A referral has been sent to [facility] and a exterminator Medicaid application has been completed. CM will continue to support patient, family and discharge needs.
[2019-11-05] MEDS: Polyethylene Glycol 3350 17 GM PACKET PO (15:55)
--- NOTE | 2019-11-05 16:05 | PSYCO_ITS ---
Date of service: 11/03/19 Time of Service: 11:30 History of Present Illness Narrative: Sarah Mcnamara MD requested a phone consult for help with management of Rosa Em's dementia with agitation. I reviewed the patient chart but did not see the patient as it was felt that phone support was sufficient by the Dr. Mcnamara at this time. Dr. Mcnamara reviewed with me her condition on admission and events over night. Consults Consult date: 11/03/19 Requesting physician: Sarah Mcnamara Assessment and Plan Assessment and plan (1) Dementia with behavioral disturbance: Status: Chronic Assessment and plan: Rosa Em is a 74 year old female with past psy chiatric history of dementia and anxiety who was admitted to [facility] on 11/02/2019 for severe agitation and inability to be cared for at home. I agree with ongoing medical work up to be sure agitation is not due to an underlying medical etiology in addition to the severe psychosocial disruption of her and caregiver dying a few days prior to her admission. We also do not know whether she was taking her medications at home for the last few days or perhaps longer. Therefore, the best course of action at this time is to resume her home medications of quetiapine 25mg tid to help with agitation and anxiety, and resume her memantine 5mg twice daily for agitation and aggressiveness. Avoid use of benzodiazepines. Observe her response to this medication regimen and adjust as needed. Quetiapine 25mg can be used prn for agitation and if needed regularly can be transitioned into a regularly scheduled dose. I am available for further consultation if the above management strategy is insufficient. Dr Mcnamara is welcome to contact me at any time with questions or concerns. [facility] Medical History (Updated 11/04/19 @ 07:29 by Jennie Harden MD, DC) Anxiety (Chronic) Asthma (Chronic) Dementia (Chronic) Osteoarthritis (Chronic) Surgical History No significant past surgical history (Acute) Family History (Updated 11/02/19 @ 16:53 by Sarah Mcnamara MD) Other Patient unable to provide medical history Social History Smoking/Tobacco Use Status: Never Alcohol Intake: never Drug use: Never Substance use type: does not use Do you feel safe in your relationship?: Yes Additional Social history: unable to assess. Results Last Vital Signs Temp 36.6 C 11/05/19 07:23 Pulse 76 11/05/19 07:23 Resp 18 11/05/19 07:23 BP 130/82 11/05/19 07:23 Pulse Ox 97 11/05/19 07:23 Labs Result diagrams: 11/04/19 06:21 11/04/19 06:21
[2019-11-05] MEDS: Haloperidol 5 MG/ML VIAL 2 MG IM (17:48)
[2019-11-05] MEDS: Budesonide/Formoterol 160/4.5 6 GM 60 PUFF INH IH (20:26)
[2019-11-05 20:56] VITALS: BP 96/61; PULSE 102; RESP 19; TEMP 36.9; O2SAT 98
--- NOTE | 2019-11-05 21:01 | NUR.NOTE ---
Nursing Note:19:00 Pt is more agitated. This Nurse tried to give her PRN Seroquel 25mg . The medication was pulled out from [facility]IXIS and crushed and put it in the ICE cream to give it to the pt. when the nurse was ready to administer the patient took the ice cream cup and throw it off. So the PRN dose was not given. This nurse was trying to document that in the MAR, but not able to document as pt refused. So documented as 1 mg given and written the comment about the not given reason in the MAR.
[2019-11-06] MEDS: Haloperidol 5 MG/ML VIAL 2 MG IM (08:15)
--- NOTE | 2019-11-06 08:28 | PT.INNT ---
Date of service: 11/06/19 Time of Service: 08:28 PT Notes Visit Reasons: DEMENTIA WITH BEHAVORIAL DISTURBANCE Code Miller was called on patient at around 8:20 am and cleared at 8:30 am. Will push physical therapy evaluation to this afternoon to allow patient to further stabilize. Thank you very much for this referral.
[2019-11-06] MEDS: Ibuprofen 100 MG/5 ML CUP 400 MG PO (10:36)
--- NOTE | 2019-11-06 12:08 | DSE_ITS ---
Date of service: 11/06/19 Time of Service: 12:09 DS: Diagnosis Discharge Diagnosis (1) Acute UTI: Status: Acute (2) Dementia with behavioral disturbance: Status: Chronic (3) Palliative care encounter: Status: Acute Discharge Plan Disposition Patient Disposition: HOSPITAL, NON-SPECIFIC Condition: Stable Discharge Details Chief Complaint: AMS/LOC Clinical Impression: Alzheimer's dementia, Psychotic episode, Opacity of lung on imaging study, Acute UTI Reason For Visit: DEMENTIA WITH BEHAVORIAL DISTURBANCE Admit Date/Time: 11/02/19 09:18 Admit Provider: Sarah Mcnamara Attending Provider: Sarah Mcnamara Primary Care Provider: Shan Gracia ED Provider: Marco Garcia Hospital Course Hospital Course: Ms Em is a 74 year old female with PMHx of Alzheimer's dementia, anxiety, asthma, osteoarthritis, who was brought to [facility] ED today by ambulance for agitated/violent behavior at home, as well as worsening confusion and wandering behavior. The patient cannot provide this history, so the majority of the history below is based on the account of events by the ED provider. The patient used to live with her , who 2 weeks ago of unclear cause. Her family came from [place] to help. The patient was tested within the last week for COVID-19 as outpatient and was negative - per ED provider, this was done because it was not clear what her had of. We do not know her 's COVID status. We do not know how the patient's family traveled from [place], if they had any sick contacts, or what their COVID status is so she was tested and tests results came back negative. The patient required sedation with haldol, ativan, and zyprexa in ED as well as physical restraints. From the medical stand point, the patient's workup reveals hypokalemia, slightly elevated ammonia, normal procalcitonin and CRP. Her UA is consistent with a very mild UTI and she was treated with ceftrixone IVPB and completed a 5 days course. The family cannot take care of her at home and she will need to be placed. Home Meds and New Rx's Prescriptions: Continued fluticasone propion-salmeterol [Advair Diskus] 1 PUFF blister with device 1 inh DAILY RF: 0 memantine 5 mg Tablet 1 tab PO BID RF: 0 quetiapine [Seroquel] 25 mg Tablet 25 mg PO DAILY PRN PRNRF: 0 quetiapine [Seroquel] 25 mg tablet 25 mg PO TID RF: 0 Discharge Instructions Instructions: Alzheimer Disease (DC) Activity:: Activity as Tolerated Equipment/Supplies:: No Equipment Needed Diet:: As Tolerated Discharge Orders Discharge Orders: Discharge Order (Routine); Ordered 11/06/19 Ordered By: Danielle Wallace DS: Summary Status at Discharge Functional status at discharge: uses cane/walker Overall status at discharge: patient is not back to baseline Mental Status: other Speech and Movement: agitated Mood: labile mood and other Affect: labile affect Exam Narrative Exam Narrative: General: Pleasant and uncooperative at times. elderly female, sitting up in chair with her eyes closed, A&Ox1 Neurological: A&ox1, no obvious focal deficits Psychiatric: mildly anxious, but cooperative and not combative at the time of our visit Skin: visible skin intact; very long toe nails with evidence of onychomycosis HEENT: Atraumatic, normocephalic, eyes closed (not opening when asked), MMM, no JVD, goiter, or lymphadenopathy Cardiovascular: RRR, no m/r/g Lungs: CTAB Gastrointestinal: soft, nontender, nondistendedd Extremities: no e/c/c BLE's Psych Mental Status: other Speech and Movement: agitated Mood: labile mood and other Affect: labile affect DS: Data Vitals/I&O Vitals and I&O: Vital Signs Temperature 36.9 C 11/05/19 20:56 Temperature Source Tympanic 11/05/19 20:56 Pulse 102 H 11/05/19 20:56 Pulse Rhythm Regular 11/06/19 07:30 Pulse 68 11/02/19 11:10 Respiratory Rate 19 11/05/19 20:56 Respiratory Effort 11/06/19 07:30 Respiratory Depth Normal 11/06/19 07:30 Respiratory Pattern Normal 11/06/19 07:30 Blood Pressure 96/61 L 11/05/19 20:56 Blood Pressure Mean 65 11/02/19 11:01 Blood Pressure Position Supine 11/02/19 07:09 Pulse Oximetry 98 11/05/19 20:56 Oxygen Delivery Method Room Air 11/05/19 20:56 Oxygen Flow Rate 0 11/05/19 20:56 Pain Level 0 11/05/19 20:56 Comment 11/06/19 07:30 Intake & Output 11/05/19 11/06/19 11/06/19 23:59 11:59 23:59 Intake Total 0 / 0 Output Total 550 / 550 200 / 200 Balance -550 / -550 -200 / -200 Weight 51 kg Intake: Oral 0 / 0 Output: Urine 550 / 550 200 / 200 Other: Urine Color Dark Flower Yellow Urine Appearance Clear Clear Urine Odor Normal Comment pt refused to get up and go to bathroom, pt refused straight cath at this time. pt refused to be bladder scanned. Stool Size Smear Voiding Methods Bedside Commode Toilet Data Completed and Pending Labs on day of discharge: Preliminary micro results at discharge 11/02/19 09:40 Blood Culture - Preliminary Blood NO GROWTH 96 HOURS 11/02/19 09:30 Blood Culture - Preliminary Blood NO GROWTH 96 HOURS [facility] Medical History (Updated 11/04/19 @ 07:29 by Jennie Harden MD, DC) Anxiety (Chronic) Asthma (Chronic) Dementia (Chronic) Osteoarthritis (Chronic) Surgical History No significant past surgical history (Acute) Family History (Updated 11/02/19 @ 16:53 by Sarah Mcnamara MD) Other Patient unable to provide medical history Social History Smoking/Tobacco Use Status: Never Alcohol Intake: never Drug use: Never Substance use type: does not use Do you feel safe in your relationship?: Yes Additional Social history: unable to assess.
[2019-11-06] MEDS: Haloperidol 5 MG TAB PO (12:46)
--- NOTE | 2019-11-06 14:17 | PDOC.CMDIS ---
- If Service Date Differs Date of service: 11/06/19 Time of Service: 14:17 LACE Index Scoring Tool - Questions: Length of Stay (in days): 4 - 6 Acuity (Admit via E.D.?): Yes E.D. Visits: 3 - Answers: Total Score: 10 Risk of Readmission: High Risk Care Management Discharge Reason for Hospitalization: Dementia and behavioral disturbance Discharge Plan: Rosa will be transferred to [facility] in [place], [place] for medication management. She will likely return to [facility] when ready, for final discharge disposition. A Material Liaison medicaid application has been completed by her son Dontrell and submitted (faxed) by [facility] to [facility]. Rosa will transport via ambulance ([facility]) coordinated by MAR[facility]. Patient/Family Education Needs: Discharge plan, limitations, follow up plan, Ask Me Three
== END 2019-11-06 13:02 | disposition short-term general hospital (02) | DRG 690 ==
LOC: ER 09:33 → MS 11:29
PROVIDERS: Nurse Practitioner Family; Student in an Organized Health Care Education/Training Program; Admitting Provider Internal Medicine; Emergency Provider Student in an Organized Health Care Education/Training Program; PCP Family Medicine; Visit Provider Internal Medicine
DX: N39.0 Urinary tract infection, site not specified (principal); F02.81 Dementia in other diseases classified elsewhere, unspecified severity, with behavioral disturbance; E72.20 Disorder of urea cycle metabolism, unspecified; Z51.5 Encounter for palliative care; G30.9 Alzheimer's disease, unspecified; Z78.1 Physical restraint status; Z03.818 Encounter for observation for suspected exposure to other biological agents ruled out; E87.6 Hypokalemia; R91.8 Other nonspecific abnormal finding of lung field; F06.8 Other specified mental disorders due to known physiological condition; F41.9 Anxiety disorder, unspecified
CPT/HCPCS: 36415; 80048; 80053; 80307; 82805; 84145; 87040; 93005; 94640; 96365; 96367; 96372; 96375; 99223; 99232; 99233; 99239; 99285; 99357; NC; U0003; 70450; 71045; 80320; 80329; 81003; 81015; 82140; 83605; 83735; 84443; 85025; 86140; 87086; 93010; 99356; J0696; J1630; J1644; J2060; J3480

== ENCOUNTER 2020-01-14 11:54 | Inpatient (IN) | payer MEDICARE, SELFPAY ==
[2020-01-14 12:13] VITALS: BP 116/72; PULSE 87; RESP 18; TEMP 36.2; O2SAT 97
[2020-01-14 12:20] VITALS: BP 116/72; PULSE 87; RESP 18; TEMP 36.2; O2SAT 97
--- NOTE | 2020-01-14 14:18 | W.PM.HP.N ---
Date of service: 01/14/20 Time of Service: 14:19 Assessment and Plan Assessment and plan (1) Dementia with behavioral disturbance: Status: Chronic Assessment and plan: has been stabilized at the [facility] inpatient psychiatric facility, will continue current medication regimen. medically she has been stable. (2) Discharge planning issues: Status: Acute Assessment and plan: she is awaiting a bed at [facility] and rehab. case management following History of Present Illness History of Present Illness Chief Complaint: behavioral disturbances Narrative: Ms Em is a 74 year old female with PMHx of Alzheimer's dementia, anxiety, asthma, osteoarthritis, who was originally brought to [facility] ED for agitated/violent behavior at home, as well as worsening confusion and wandering behavior. She required sedation with haldol, ativan, and zyprexa in ED as well as physical restraints. She was treated for a UTI and was medically stable but was unable to be safely discharged back to home. case management was following closely and a bed was secured at the [facility] for acute inpatient richar-psychiatric care. She was transported to [facility] for medication management. She has been stable and is now ready to be discharged back to here and if she remains stable with behaviors she will will discharged to [facility] and rehab for retirement care placement. Review of Systems Unobtainable due to mental status (severe advanced dementia) [facility] Medical History (Updated 11/04/19 @ 07:29 by Jennie Harden MD, DC) Anxiety (Chronic) Asthma (Chronic) Dementia (Chronic) Osteoarthritis (Chronic) Surgical History No significant past surgical history (Acute) Family History (Updated 11/02/19 @ 16:53 by Sarah Mcnamara MD) Other Patient unable to provide medical history Social History Smoking/Tobacco Use Status: Never Alcohol Intake: never Drug use: Never Substance use type: does not use Additional Social history: pt drowsy , unable to answer at this time Meds Home Medications and Allergies Home Medications Medication Instructions Recorded Confirmed Type fluticasone propion-salmeterol 1 inh DAILY 01/01/13 11/02/19 History [Advair Diskus] memantine 1 tab PO BID 03/24/18 11/02/19 History quetiapine [Seroquel] 25 mg PO DAILY PRN PRN 11/02/19 11/02/19 History quetiapine [Seroquel] 25 mg PO TID 11/02/19 11/02/19 History benztropine 0.5 mg PO BID 01/14/20 01/14/20 History famotidine 20 mg PO DAILY 01/14/20 01/14/20 History gabapentin 100 mg PO BID 01/14/20 01/14/20 History ibuprofen 400 mg PO BID 01/14/20 01/14/20 History lamotrigine 75 mg PO DAILY 01/14/20 01/14/20 History lamotrigine 75 mg PO QACDINNER 01/14/20 01/14/20 History lorazepam 1 mg PO QACDINNER 01/14/20 01/14/20 History lorazepam 1 mg PO QNOON 01/14/20 01/14/20 History melatonin 3 mg PO HS 01/14/20 01/14/20 History memantine 5 mg PO BID 01/14/20 01/14/20 History mirtazapine 22.5 mg PO QPM 01/14/20 01/14/20 History polyethylene glycol 3350 17 g PO DAILY 01/14/20 01/14/20 History risperidone 0.5 mg PO DAILY 01/14/20 01/14/20 History risperidone 1 mg PO HS 01/14/20 01/14/20 History risperidone 1.5 mg PO QNOON 01/14/20 01/14/20 History sennosides-docusate sodium 2 cap PO QDAY 01/14/20 01/14/20 History sennosides-docusate sodium 2 tab PO QACDINNER 01/14/20 01/14/20 History Allergies Allergy/AdvReac Type Severity Reaction Status Date / Time amoxicillin Allergy Severe Hives Unverified 11/02/19 07:39 Penicillins Allergy Severe Hives Unverified 11/02/19 07:39 morphine Allergy Unknown Unverified 11/02/19 07:39 acetaminophen [From Percocet] AdvReac Nausea Unverified 11/02/19 07:39 hydrocodone [Hydrocodone] AdvReac Nausea Unverified 11/02/19 07:39 oxycodone HCl [From Percocet] AdvReac Nausea Unverified 11/02/19 07:39 Exam Const General: cooperative Nutritional Appearance: average body habitus Orientation: alert, awake and confused [facility] Head: normal to inspection, normocephalic and atraumatic Mouth: oral mucosae normal Resp Effort & Inspection: normal respiratory effort Cardio Rate: regular rate Rhythm: regular rhythm GI Inspection: normal to inspection Palpation: soft Auscultation: normal bowel sounds Skin General skin exam: no rashes or lesions noted Neuro General: patient alert and patient awake Extrem General: normal to inspection and full ROM Results Last Vital Signs Temp 36.2 C L 01/14/20 12:20 Pulse 87 01/14/20 12:20 Resp 18 01/14/20 12:20 BP 116/72 01/14/20 12:20 Pulse Ox 97 01/14/20 12:20 COVID-19 Screening In the past 14 days, have you traveled outside of [place]?: NO Had IN PERSON contact w/suspected or confirmed C-19 person: No
[2020-01-14 16:24] VITALS: BP 126/73; PULSE 76; RESP 12; TEMP 36.1; O2SAT 96
[2020-01-14] MEDS: lamoTRIgine 25 MG TAB 75 MG PO (17:50)
[2020-01-14] MEDS: Benztropine 1 MG TAB 0.5 MG PO (20:06)
[2020-01-14] MEDS: Mirtazapine 15 MG TAB 22.5 MG PO (20:06)
[2020-01-14] MEDS: Memantine 5 MG TAB PO (20:06)
[2020-01-14] MEDS: Gabapentin 100 MG CAP PO (20:07)
[2020-01-14] MEDS: Ibuprofen 400 MG TAB PO (20:07)
[2020-01-14] MEDS: risperiDONE 1 MG TAB PO (21:46)
[2020-01-14] MEDS: Melatonin 3 MG TAB PO (21:46)
[2020-01-15] MEDS: lamoTRIgine 25 MG TAB 75 MG PO ×2 (07:39→16:13)
[2020-01-15] MEDS: Polyethylene Glycol 3350 17 GM PACKET PO (07:39)
[2020-01-15] MEDS: Memantine 5 MG TAB PO ×2 (07:40→20:14)
[2020-01-15] MEDS: risperiDONE 0.5 MG TAB PO (07:40)
[2020-01-15] MEDS: Gabapentin 100 MG CAP PO ×2 (07:40→20:14)
[2020-01-15] MEDS: Famotidine 20 MG TAB PO (07:40)
[2020-01-15] MEDS: Sennosides/Docusate Sodium TAB 2 TAB PO ×2 (07:40→16:14)
[2020-01-15] MEDS: Ibuprofen 400 MG TAB PO ×2 (07:40→20:15)
[2020-01-15] MEDS: Benztropine 1 MG TAB 0.5 MG PO ×2 (07:41→20:13)
[2020-01-15 07:48] VITALS: BP 149/76; PULSE 57; RESP 18; TEMP 37.4; O2SAT 95
--- NOTE | 2020-01-15 10:49 | CM.SBPSYCH ---
- If Service Date Differs Date of service: 01/15/20 Time of Service: 10:49 SB Psychosocial/Act.Assessment - Hospital Admission Admission Date: 01/14/20 Admission From:: [facility] Diagnosis:: Advanced dementia - Swing Bed Admission Swing Bed Admit Date:: 01/14/20 Swing Bed Level of Care: Level 2/ICF - Social Supports PREVIOUS FUNCTIONAL STATUS/SOCIAL/FAMILY SUPPORTS:: Rosa lives in a single family home in [facility]. Until recently, she lived with her who has been taking care of her. She has had dementia for the past 3 years and, according to her son Jorge Alberto and daughter in law Margo, she is becoming aggressive and combative. Rosa's was found a week ago and Jorge Alberto and Margo flew up from [place] to try to find placement for Rosa. - Education Highest Grade Completed:: high school Where did you attend School:: [employer] Active Quaker Member:: Yes Quaker Affliation: Rosa knows she is Yarsanism but is unsure of which rastafari she has attended. - Present Functional Status Physical Abilities:: good general physical health Cognitive:: advanced dementia Communication:: speaks clearly but is unable to communicate thoughts and feelings - Medical History PAST MEDICAL HISTORY/PAST SURGICAL HISTORY:: Medical History (Updated 11/02/19 @ 17:02 by Sarah Mcnamara MD). Anxiety (Chronic). Asthma (Chronic). Dementia (Chronic). Osteoarthritis (Chronic). Surgical History . No significant past surgical history (Acute) - Admission Data Reason for Swing Bed Admission:: awaiting fci placement Discharge Plan:: Rosa will be discharged to a intermediate card tender care facility when placement can be secured. Assessment: Rosa is a 74 year old woman with advanced dementia. She is recently and has only one child who lives in [place]. She is unable to care for herself and will require intermediate card tender placement. Accounts Payable Technician: Cristela Romano Date Assessment was completed:: 01/15/20
--- NOTE | 2020-01-15 11:02 | CM.SWINGPC ---
- If Service Date Differs Date of service: 01/15/20 Time of Service: 11:02 Swingbed Plan of Care Plan of care: SWING BED PROGRAM ACTIVITIES/DISCHARGE PLAN OF CARE ACTIVITIES PLAN Date:01/15/20 Identified Need: Individualized activity plan Intervention/Plan: Rosa will be offered Tv and coloring materials from the activity cart. She has been provided with an activity blanket that has different shapes and textures applied to it. Other items from the activity cart will be offered as appropriate. Initials [facility] DISCHARGE PLAN Date: 01/15/20 Identified Need: Safe placement for Rosa Intervention/Plan: Rosa will need long-term placement. [facility]. Initials: [facility]
--- NOTE | 2020-01-15 11:02 | PDOC.CMIN ---
- If Service Date Differs Date of service: 01/15/20 Time of Service: 11:03 Care Management Initial Assess REASON FOR HOSPITALIZATION:: Advanced dementia PAST MEDICAL HISTORY/PAST SURGICAL HISTORY:: Medical History (Updated 11/04/19 @ 07:29 by Jennie Harden MD, PR). Anxiety (Chronic). Asthma (Chronic). Dementia (Chronic). Osteoarthritis (Chronic). Surgical History . No significant past surgical history (Acute) PREVIOUS FUNCTIONAL STATUS/SOCIAL/FAMILY SUPPORTS:: Rosa lives in a single family home in [facility]. Until recently, she lived with her who has been taking care of her. She has had dementia for the past 3 years and, according to her son Jorge Alberto and daughter in law Margo, she was becoming aggressive and combative. Rosa's was found in October and Rosa was in the home with his body for some time before the was discovered. Her son Jorge Alberto and Margo flew up from [place] to try to find placement for Rosa at that time. She was at [facility] briefly and has been at [facility] for the past 2 months.. CURRENT FUNCTIONAL STATUS:: Rosa was sitting up in a chair when met with her. She was smiling and pleasant but very confused. Her responses to questions asked were unrelated to the questions themselves. At the time of the visit, Rosa was calm and relaxed, however she had been restless earlier in the day. ADVANCE DIRECTIVES:: none on file Has patient been provided with info about the portal/API?: No Did the patient sign up for the portal?: No CODE STATUS:: Full Code INSURANCE COVERAGE / FINANCIAL ISSUES:: Medicare[facility] CURRENT HOME/COMMUNITY SERVICES/EQUIPMENT:: none currently PRIMARY CARE PHYSICIAN:: Shan Gracia POTENTIAL DISCHARGE NEEDS:: Rosa will need to be placed in a facility. group home medicaid application was completed but was denied until she can spend down her assets. ANTICIPATED BARRIERS TO DISCHARGE:: Finding an accepting facility for placement. If Rosa's aggressive and combative behaviors return, placement will be very difficult. TRANSPORTATION:: to be determined PLAN:: Rosa will need to be placed in a care home care facility. A referral was sent to [facility] from the [facility] before Rosa was discharged. Per report, they are considering making a bed offer, after a period of observation of her behavior at [facility].
--- NOTE | 2020-01-15 11:10 | NS.NUTBLAN_ITS ---
Date of service: 01/15/20 Time of Service: 11:11 Nutritional Consult ASSESSMENT: 74 year old female admitted with advanced dementia and treated for UTI. Per medical chart has lost 13 lbs in last year, down -12% weight loss considered significant and of concern putting Rosa at risk for continued nutritional decline and skin breakdown. Currently ordered regular meal plan with poor meal acceptance. Labs and meds unremarkable. Current BMI wnl, however lower than typical for ptl, skin intact, nursing reports no problems with swallowing/dentition that could make eating difficult. Estimated Needs: 1275- 1530 kcal, 51-61 g pro, 1530 ml fluid. Per POLST does not want artificial nutr ition if unable to meet nutrient/fluid needs. Recommend ensure BID and close monitoring of po intake. NUTRITIONAL DIAGNOSIS: Malnutrition in context of significant wieght loss in last 12 months INTERVENTION: regular meal plan, ensure BID, daily monitoring of weight, po intake, labs MONITORING AND EVALUATION: regular meal plan, ensure BID, daily monitoring of weight, po intake, labs Time Spent in Nutritional Counseling and Treatment: 0 time spent face to face
[2020-01-15] MEDS: risperiDONE 0.5 MG TAB 1.5 MG PO (12:44)
[2020-01-15] MEDS: LORazepam 1 MG TAB PO ×2 (12:44→16:14)
[2020-01-15] MEDS: Mirtazapine 15 MG TAB 22.5 MG PO (20:11)
[2020-01-15 20:35] VITALS: PULSE 69; O2SAT 97
[2020-01-15] MEDS: risperiDONE 1 MG TAB PO (21:45)
[2020-01-15] MEDS: Melatonin 3 MG TAB PO (21:45)
[2020-01-16 08:13] VITALS: BP 125/75; PULSE 82; RESP 17; TEMP 36.7; O2SAT 96
--- NOTE | 2020-01-16 08:41 | PT.INIE ---
Date of service: 01/16/20 Time of Service: 08:41 PT Notes Visit Reasons: ADVANCED DEMENTIA Physical Therapy Inpatient Initial Evaluation Date: 01/16/2020 Referring Doctor: Danielle Wallace NP PT Orders: PT CONSULT: Limited ability Precautions: Fall. Standard. Activity as tolerated. Patient Profile/Admitting Diagnosis: Rosa is a 74-year-old female who directly transfers from [facility] for psychiatric stabilization for behavioral disturbance related with dementia back to [facility] on 01/14/2020. Referral to skilled services was received to address mobility issues and for safety recommendations. PMHX: Medical History (Updated 11/04/19 @ 07:29 by Jennie Harden MD, MS) Anxiety (Chronic) Asthma (Chronic) Dementia (Chronic) Osteoarthritis (Chronic) Surgical History No significant past surgical history (Acute) Social History/Home Situation: Patient is an unreliable historian due to pre-existing dementia. Per pediatric critical care nurse Cristela's notes: Rosa lives in a single family home in [facility]. Until recently, she lived with her who has been taking care of her. She has had dementia for the past 3 years and, according to her son Jorge Alberto and daughter in law Margo, she was becoming aggressive and combative. Rosa's was found in October and Rosa was in the home with his body for some time before the was discovered. Her son Dontrell and Margo flew up from [place] to try to find placement for Rosa at that time. She was at [facility] briefly and has been at [facility] for the past 2 months. Equipment Owned/DME: None per CM notes Subjective: Rosa was seen sitting quietly on chair in her room, staring on the wall in front of her. She responded with a hint of a smile when her name was called. Objective: General Observation: Calm, non-agitated. Non-fidgety. Reclined on chair. Did not resist removal of pillow under her legs and positioning of her chair upright. Mental Status: Alert. Not oriented to place and time. REquires maximal verbal, tactile, and visual cueing to move and walk. Replies non-sensical and unrelated to topic. Pain: No facial grimacing, moaning, stiffening of limbs observed throughout session. ROM: (Unable to follow instructions for a formal assessment) Right Upper Extremity: Grossly WFL Left Upper Extremity: Grossly WFL Right Lower Extremity: Grossly WFL Left Lower Extremity: Grossly WFL Strength: (Unable to follow instructions for a formal assessment) Right Upper Extremity: Grossly 3+/5 Left Upper Extremity: Grossly 3+/5 Right Lower Extremity: Grossly 3+/5 Left Lower Extremity:Grossly 3+/5 Sensation: Unable to test Bed Mobility/Transfers: Sit to stand Only able to stand up when patient's hands were held and were gently pulled up requiring only minimal assist from PT Stand to sit Hands were guided to the armrests behind her and she was instructed and visually cues to sit down, minimal assist provided Gait: 150 feet using FWW with FWB and CGA for safety. PT held onto walker to guide patient to move forward. Wheelchair follow done for safety. Decreased vale. Decreased step length. Maximal cues provided for directions and walker management. Balance: Static Sitting: Normal Dynamic Sitting: Normal Static Standing: Fair Dynamic Standing: Fair Special Tests: Mobility Limitations Standardized Measure [facility] AM-PAC 6 clicks Basic Mobility Inpatient Short Form: Raw Score: 17 CMS Score: 51% deficit Informed Consent/Education: Patient instructed in purpose of PT consult and plan of care. Assessment: Rosa requires maximal verbal, tactile, and visual cueing to perform mobility ADL performance using the front wheeled walker. At this time, she is unable to follow instructions for exercise performance. She will benefit from assisted facility placement as a long-term resident. Patient presents with clinical signs and symptoms consistent with current/admitting diagnoses that have resulted to mobility limitations, gait instability, generalized weakness, and impairment of motor control as demonstrated by the following impairment level findings: 1. Decreased strength to be UE/LE major muscle groups 2. Impaired sitting/standing balance 3. Impaired activity tolerance 4. Impaired safety awareness Impairments are contributing to the following functional limitations: 1. Dependent bed mobility skills 2. Increased dependence with transfers 3. Inability to safely ambulate without assistive device and physical assistance 4. Increase completion time for mobility ADL performance 5. Increased fall risk 6. Inability to negotiate steps alone safely Patient is assessed as a 65357 moderate complexity based on the following: History: 74-year-old female with impairment level findings, functional limitations, and past medical history as indicated above Examination: Demonstrable impairment in strength, balance, and mobility level with underlying impairments and functional limitations as documented above Presentation:Evolving Decision Makin moderate complexity Goals: N/A. PT consult only. Plan of Care/Treatment Plan: N/A. PT consult only. DISCHARGE RECOMMENDATIONS: Patient will benefit from regular ambulation activity with nursing staff using front wheeled walker and wheelchair follow in order to prevent functional mobility decline while awaiting long-term care placement. Patient will benefit from assisted facility placement for continued skilled physical therapy services in order to progress mobility level, strength, and balance. TREATMENT CODE/TIME: 9716 2 x 22 minutes beginning at 8:41 AM. Thank you very much for this referral. Paz Nguyen PT, DPT, CLT [facility] [place], [place]
[2020-01-16] MEDS: Famotidine 20 MG TAB PO (09:29)
[2020-01-16] MEDS: Ibuprofen 400 MG TAB PO ×2 (09:29→21:10)
[2020-01-16] MEDS: Sennosides/Docusate Sodium TAB 2 TAB PO ×2 (09:29→16:38)
[2020-01-16] MEDS: lamoTRIgine 25 MG TAB 75 MG PO ×2 (09:29→16:37)
[2020-01-16] MEDS: Polyethylene Glycol 3350 17 GM PACKET PO (09:30)
[2020-01-16] MEDS: Benztropine 1 MG TAB 0.5 MG PO ×2 (09:30→21:10)
[2020-01-16] MEDS: Memantine 5 MG TAB PO ×2 (09:30→21:10)
[2020-01-16] MEDS: risperiDONE 0.5 MG TAB PO (09:30)
[2020-01-16] MEDS: Gabapentin 100 MG CAP PO ×2 (09:30→21:10)
--- NOTE | 2020-01-16 10:44 | PHA.REVIEW ---
Pharmacy Admission Review - Admission Clinical Review (Last Updated 11/02/19 @ 16:53 by Sarah Mcnamara MD) Discharge planning issues (Acute) amoxicillin Allergy (Severe, Unverified 11/02/19 07:39) Hives Penicillins Allergy (Severe, Unverified 11/02/19 07:39) Hives morphine Allergy (Unknown, Unverified 11/02/19 07:39) acetaminophen [From Percocet] Adverse Reaction (Unverified 11/02/19 07:39) Nausea hydrocodone [Hydrocodone] Adverse Reaction (Unverified 11/02/19 07:39) Nausea oxycodone HCl [From Percocet] Adverse Reaction (Unverified 11/02/19 07:39) Nausea Height 5 ft 1.81 in Weight 49.9 kg - Comments Comments/Follow Ups: swingbed . waiting for placement to [facility]& [facility] - Renal Dosing Medications needing adjustments: Reviewed (crcl ~46ml/min) - BP Control BP Control: Blood Pressure 125/75 If elevated: N/A - Comments Comments/Follow Ups: slept well, did ok overnight per nursing report. here until possibly Sunday
[2020-01-16] MEDS: risperiDONE 0.5 MG TAB 1.5 MG PO (12:09)
[2020-01-16] MEDS: LORazepam 1 MG TAB PO ×2 (12:09→16:38)
[2020-01-16] MEDS: Melatonin 3 MG TAB PO (21:10)
[2020-01-16] MEDS: Mirtazapine 15 MG TAB 22.5 MG PO (21:11)
[2020-01-16] MEDS: risperiDONE 1 MG TAB PO (21:11)
[2020-01-17 07:25] VITALS: BP 104/63; PULSE 88; RESP 15; TEMP 37.4; O2SAT 95
[2020-01-17] MEDS: Polyethylene Glycol 3350 17 GM PACKET PO (09:36)
[2020-01-17] MEDS: LORazepam 1 MG TAB PO ×2 (12:47→16:33)
[2020-01-17] MEDS: risperiDONE 0.5 MG TAB 1.5 MG PO (12:47)
[2020-01-17] MEDS: lamoTRIgine 25 MG TAB 75 MG PO (16:33)
[2020-01-17] MEDS: Sennosides/Docusate Sodium TAB 2 TAB PO (16:33)
[2020-01-18 07:41] VITALS: BP 111/70; PULSE 88; RESP 18; TEMP 36.9; O2SAT 97
--- NOTE | 2020-01-18 09:27 | PDOC.CMPRO ---
- If Service Date Differs Date of service: 01/18/20 Time of Service: 09:27
[2020-01-18] MEDS: Famotidine 20 MG TAB PO (09:53)
[2020-01-18] MEDS: Benztropine 1 MG TAB 0.5 MG PO ×2 (09:53→21:52)
[2020-01-18] MEDS: Sennosides/Docusate Sodium TAB 2 TAB PO (09:53)
[2020-01-18] MEDS: Gabapentin 100 MG CAP PO ×2 (09:53→21:53)
[2020-01-18] MEDS: lamoTRIgine 25 MG TAB 75 MG PO (09:53)
[2020-01-18] MEDS: Memantine 5 MG TAB PO ×2 (09:53→21:52)
[2020-01-18] MEDS: Ibuprofen 400 MG TAB PO ×2 (09:53→21:53)
[2020-01-18] MEDS: risperiDONE 0.5 MG TAB PO (09:54)
[2020-01-18] MEDS: Polyethylene Glycol 3350 17 GM PACKET PO (09:54)
[2020-01-18] MEDS: risperiDONE 0.5 MG TAB 1.5 MG PO (11:22)
[2020-01-18] MEDS: LORazepam 1 MG TAB PO (11:22)
[2020-01-18 14:54] VITALS: BP 105/70; PULSE 90; RESP 16; TEMP 37.2; O2SAT 96
[2020-01-18] MEDS: risperiDONE 1 MG TAB PO (21:52)
[2020-01-18] MEDS: Melatonin 3 MG TAB PO (21:53)
[2020-01-18] MEDS: Mirtazapine 15 MG TAB 22.5 MG PO (21:53)
[2020-01-19 07:51] VITALS: BP 110/70; PULSE 87; RESP 18; TEMP 36.8; O2SAT 96
[2020-01-19] MEDS: LORazepam 1 MG TAB PO ×2 (14:16→17:22)
[2020-01-19] MEDS: risperiDONE 0.5 MG TAB 1.5 MG PO (14:17)
--- NOTE | 2020-01-19 16:24 | CMPROGNOTE_ITS ---
- If Service Date Differs Date of service: 01/19/20 Time of Service: 16:24 Care Management Progress Note MARIAM contacted Dontrell, Rosa's son, to inform him that there will be a Palliative Care consult with Dr. Harden later this afternoon. Dontrell agreed to be available by phone. MARIAM also provided an update and talked about the probability that goals of care and code status will be discussed during the palliative consult. At Dontrell' request, MARIAM also provided contact information for an environmental attorney who specializes in elder care matters. P: Rosa is awaiting placement in a senior living care facility.
[2020-01-19] MEDS: Sennosides/Docusate Sodium TAB 2 TAB PO (17:22)
[2020-01-19] MEDS: lamoTRIgine 25 MG TAB 75 MG PO (17:22)
--- NOTE | 2020-01-19 19:58 | PCNE_ITS ---
Date of service: 01/19/20 Time of Service: 17:59 History of Present Illness Narrative: From her H and P: History of Present Illness History of Present Illness Chief Complaint: behavioral disturbances Narrative: Ms Em is a 74 year old female with PMHx of Alzheimer's dementia, anxiety, asthma, osteoarthritis, who was originally brought to [facility] ED for agitated/violent behavior at home, as well as worsening confusion and wandering behavior. She required sedation with haldol, ativan, and zyprexa in ED as well as physical restraints. She was treated for a UTI and was medically stable but was unable to be safely discharged back to home. case management was following closely and a bed was secured at the [facility] for acute inpatient richar-psychiatric care. She was transported to [facility] for medication management. She has been stable and is now ready to be discharged back to here and if she remains stable with behaviors she will will discharged to [facility] and rehab for exterminator termite care placement. Consults Consult date: 01/19/20 Requesting physician: Sarah Mcnamara Assessment and Plan Assessment and plan (1) Dementia with behavioral disturbance: Status: Chronic (2) Palliative care encounter: Status: Acute Assessment and plan: Rosa is recently spent some time at [facility]. Her medications have been stabilized and she seems much calmer than she was the last time I evaluated her. According to her H&P she is awaiting transfer to health and rehab. I spoke with her son Dontrell who is her legal guardian. We discussed the CO LST form. Per Dontrell and our telephone conversation she is a DNR/DNI, no transferring when she leaves the hospital, no feeding tubes no IVs, antibiotics only if it makes her comfortable. Although Dontrell was not available to sign it I noted the time and date of a telephone conversation. I did call from the hospital phone as his phone would not accept my blocked phone call. The original was sent to Dontrell copy was placed in the EMR. I also did place a copy of guardianship with the CO LST form. Addendum Rosa seems much calmer than the last time I saw her. I will visit her again if she is at [facility] for any extended. Hopefully she will be transferred to health and rehab soon and she will have a peaceful next chapter in her life Thank you very much for this consult Please note the hospitalist had already left for the day so I did change her CODE STATUS from full code to DNR Review of Systems Narrative: Unobtainable due to patient's advanced dementia [facility] Medical History (Updated 11/04/19 @ 07:29 by Jennie Harden MD, DC) Anxiety (Chronic) Asthma (Chronic) Dementia (Chronic) Osteoarthritis (Chronic) Surgical History No significant past surgical history (Acute) Family History (Updated 11/02/19 @ 16:53 by Sarah Mcnamara MD) Other Patient unable to provide medical history Social History Smoking/Tobacco Use Status: Never Alcohol Intake: never Drug use: Never Substance use type: does not use Additional Social history: pt drowsy , unable to answer at this time Exam Narrative Exam Narrative: Rosa was lying in bed. The top of her nightgown was at approximately her navel level. She was gibberish looked at me and smiled but did not see any meaningful words. She did not try to get out of bed. Her heart was slightly irregular. She did not cooperate with her lung exam but I did not detect any wheezing or rales. Her abdomen was soft nontender it appeared like I tickled her. Results Last Vital Signs Temp 98.2 F 01/19/20 07:51 Pulse 87 01/19/20 07:51 Resp 18 01/19/20 07:51 BP 110/70 01/19/20 07:51 Pulse Ox 96 01/19/20 07:51
[2020-01-19] MEDS: Benztropine 1 MG TAB 0.5 MG PO (21:33)
[2020-01-19] MEDS: Ibuprofen 400 MG TAB PO (21:34)
[2020-01-19] MEDS: Mirtazapine 15 MG TAB 22.5 MG PO (21:34)
[2020-01-19] MEDS: Memantine 5 MG TAB PO (21:35)
[2020-01-19] MEDS: Gabapentin 100 MG CAP PO (21:35)
[2020-01-19] MEDS: risperiDONE 1 MG TAB PO (21:35)
[2020-01-19] MEDS: Melatonin 3 MG TAB PO (21:35)
--- NOTE | 2020-01-20 | DI.RAD_ITS ---
EXAM: XR WRIST LT COMPLETE CLINICAL HISTORY: bruising, pain, swelling. pt with severe dementia. TECHNIQUE: 2D digital imaging was performed. COMPARISON: No exams were available for comparison FINDINGS: BONES: No acute fracture is present. No bony destructive lesion is seen. JOINTS: The carpal bones are normally aligned. Marked degenerative changes are seen at the 1st carpom etacarpal joint characterized by joint space narrowing, subchondral sclerosis and cysts, and marginal osteophyte formation. More moderate degenerative changes are seen at the 2nd carpometacarpal joint. SOFT TISSUE: Normal. IMPRESSION: Severe osteoarthritis of the 1st carpometacarpal joint. No acute fracture or dislocation. DATA REPOSITORY: RADIATION DOSE DELIVERED:
[2020-01-20 07:16] VITALS: BP 100/67; PULSE 109; RESP 16; TEMP 36.8; O2SAT 94
--- NOTE | 2020-01-20 16:58 | DI.VRAD_ITS ---
PROCEDURE INFORMATION: Exam: XR Left Wrist Exam date and time: 01/20/2020 4:30 PM Age: 74 years old Clinical indication: Pain; Wrist; Left TECHNIQUE: Imaging protocol: XR Left wrist. Views: 3 or more views. COMPARISON: No relevant prior studies available. FINDINGS: Bones/joints: Severe osteoarthritis at the 1st carpometacarpal joint, as manifested by almost complete loss of the joint space, subchondral sclerosis, subchondral cyst formation, and large marginal osteophyte formation. Mild osteoarthritis is also appreciated at the 2nd carpometacarpal joint. No acutely displaced fracture or dislocation. No aggressive osseous lesions. Soft tissues: No significant soft tissue swelling. IMPRESSION: Severe osteoarthritis at the 1st carpometacarpal joint. Dictated and Authenticated by: Isaac Mathias MD. Ordering:MAYURI Santos MD
[2020-01-20] MEDS: lamoTRIgine 25 MG TAB 75 MG PO (20:22)
[2020-01-20] MEDS: Benztropine 1 MG TAB 0.5 MG PO (20:22)
[2020-01-20] MEDS: Mirtazapine 15 MG TAB 22.5 MG PO (20:22)
[2020-01-20] MEDS: Memantine 5 MG TAB PO (20:28)
[2020-01-20] MEDS: Gabapentin 100 MG CAP PO (20:28)
[2020-01-20] MEDS: LORazepam 1 MG TAB PO (20:28)
[2020-01-20] MEDS: Ibuprofen 400 MG TAB PO (20:31)
[2020-01-20 21:20] LABS: COVID-19 RT-PCR UVMMC Result Negative (Negative)
[2020-01-20] MEDS: risperiDONE 1 MG TAB PO (21:39)
[2020-01-20] MEDS: Melatonin 3 MG TAB PO (21:39)
[2020-01-21 07:52] VITALS: BP 99/63; PULSE 101; RESP 16; TEMP 37; O2SAT 95
[2020-01-21 09:59] VITALS: BP 102/67; PULSE 90; RESP 18; TEMP 37; O2SAT 93
--- NOTE | 2020-01-21 10:24 | W.PM.DS.N ---
Date of service: 01/21/20 Time of Service: 10:24 DS: Diagnosis Discharge Diagnosis (1) Dementia with behavioral disturbance: Status: Chronic (2) Palliative care encounter: Status: Acute Discharge Plan Disposition Patient Disposition: [facility] (LEVEL 2) [facility] Condition: Poor Discharge Details Reason For Visit: ADVANCED DEMENTIA Admit Date/Time: 01/14/20 11:54 Admit Provider: Sarah Mcnamara Attending Provider: Sarah Mcnamara Primary Care Provider: Shan Gracia Hospital Course Hospital Course: This is a 74 year old female with PMHx of Alzheimer's dementia, anxiety, asthma, osteoarthritis, who was originally brought to [facility] ED for agitated/violent behavior at home, as well as worsening confusion and wandering behavior. She required sedation with haldol, ativan, and zyprexa in ED as well as physical restraints. She was treated for a UTI and was medically stable but was unable to be safely discharged back to home. case management was following closely and a bed was secured at the [facility] for acute inpatient richar-psychiatric care. She was transported to [facility] for medication management. She has been stable and is now ready to be discharged back to here and if she remains stable with behaviors she will will discharged to [facility] and rehab for nursing home care placement. Home Meds and New Rx's Prescriptions: Continued benztropine 0.5 mg Tablet 0.5 mg PO BID RF: 0 melatonin 3 mg Tablet 3 mg PO HS RF: 0 famotidine 20 mg Tablet 20 mg PO DAILY RF: 0 ibuprofen 400 mg Tablet 400 mg PO BID RF: 0 mirtazapine 15 mg Tablet 22.5 mg PO QPM RF: 0 gabapentin 100 mg Capsule 100 mg PO BID RF: 0 lorazepam 1 mg Tablet 1 mg PO QNOON RF: 0 lorazepam 1 mg Tablet 1 mg PO QACDINNER RF: 0 memantine 5 mg Tablet 5 mg PO BID RF: 0 polyethylene glycol 3350 17 gram Powder In Packet 17 g PO DAILY RF: 0 risperidone 3 mg Tablet 1.5 mg PO QNOON RF: 0 lamotrigine 25 mg Tablet 75 mg PO DAILY RF: 0 lamotrigine 25 mg Tablet 75 mg PO QACDINNER RF: 0 risperidone 1 mg Tablet 1 mg PO HS RF: 0 risperidone 0.5 mg Tablet 0.5 mg PO DAILY RF: 0 sennosides-docusate sodium 8.6-50 mg Capsule 2 cap PO QDAY RF: 0 Discontinued fluticasone propion-salmeterol [Advair Diskus] 1 PUFF blister with device 1 inh DAILY RF: 0 memantine 5 mg Tablet 1 tab PO BID RF: 0 quetiapine [Seroquel] 25 mg Tablet 25 mg PO DAILY PRN PRNRF: 0 quetiapine [Seroquel] 25 mg tablet 25 mg PO TID RF: 0 sennosides-docusate sodium 8.6-50 mg Capsule 2 tab PO QACDINNER RF: 0 Discharge Instructions Instructions: Dementia (GEN) Additional Instructions: expect some acute delirium secondary to environment change. routine mcc care and follow up. Exam Const General: comfortable Nutritional Appearance: thin Orientation: alert, awake and confused HENMT Head: normal to inspection, normocephalic and atraumatic Mouth: moist mucous membranes abnormal (slightly dry) Resp Effort & Inspection: normal respiratory effort Cardio Rate: regular rate Rhythm: regular rhythm GI Inspection: normal to inspection Palpation: soft Auscultation: normal bowel sounds Skin General skin exam: no rashes or lesions noted Neuro General: patient alert and patient awake Extrem Left upper extremity: wrist Details: swelling Location: of the dorsal wrist, ecchymosis (dorsal, healing, trace edema. xray negative for fracture or dislocation) and radial pulse present DS: Data Vitals/I&O Vitals and I&O: Vital Signs Temperature 37 C 01/21/20 09:59 Temperature Source Tympanic 01/21/20 09:59 Pulse 90 01/21/20 09:59 Pulse Rhythm Regular 01/21/20 09:24 Respiratory Rate 18 01/21/20 09:59 Respiratory Effort Non-Labored 01/21/20 07:38 Respiratory Depth Normal 01/21/20 07:38 Respiratory Pattern Normal 01/21/20 07:38 Blood Pressure 102/67 01/21/20 09:59 Pulse Oximetry 93 L 01/21/20 09:59 Oxygen Delivery Method Room Air 01/21/20 09:59 Oxygen Flow Rate 0 01/21/20 09:59 Pain Level 0 01/21/20 07:38 Comment 01/21/20 07:38 Intake & Output 01/20/20 01/20/2020 11:59 23:59 11:59 Intake Total 120 / 120 Balance 120 / 120 Intake: Oral 120 / 120 Other: Urine Color Yellow Urine Appearance Clear Comment pt was dry Stool Size Copious Stool Characteristics Soft Formed Voiding Methods Diaper Diaper Diaper Incontinent Incontinent Data Completed and Pending Labs on day of discharge: Labs from last 24 hours 01/20/20 09:45 COVID-19 PCR Negative Nasopharyn COVID-19 PCR Not Applicable Ref Test Perform Site [facility] Medical History (Updated 11/04/19 @ 07:29 by Jennie Harden MD, DC) Anxiety (Chronic) Asthma (Chronic) Dementia (Chronic) Osteoarthritis (Chronic) Surgical History No significant past surgical history (Acute) Family History (Updated 11/02/19 @ 16:53 by Sarah Mcnamara MD) Other Patient unable to provide medical history Social History Smoking/Tobacco Use Status: Never Alcohol Intake: never Drug use: Never Substance use type: does not use Additional Social history: pt drowsy , unable to answer at this time
[2020-01-21] MEDS: Acetaminophen 650 MG SUPP PR (11:19)
--- NOTE | 2020-01-22 12:11 | PDOC.CMACT ---
- If Service Date Differs Date of service: 01/22/20 Time of Service: 12:11 Care Management Activity Note S/O: Rosa is unable to participate in any meaningful activities. She is currently on comfort measure on a morphine drip. She is asleep most of the time and awakens only briefly. Rosa has not been eating or drinking much for the past few days and her urinary output is minimal. P: Rosa is on comfort measures now. She has been placed on a morphine drip which is being titrated to keep her comfortable. She will remain at [facility] for end of life care. MARIAM continues to communicate with her son Dontrell on a regular basis to offer support and keep him informed about Rosa's condition.
--- NOTE | 2020-01-22 13:54 | CMPROGNOTE_ITS ---
- If Service Date Differs Date of service: 01/22/20 Time of Service: 13:54 Care Management Progress Note Per Rosa's son Dontrell, they will use [facility] for burial arrangements.
--- NOTE | 2020-01-22 15:34 | CHAPLAIN ---
I spent time off and on with Rosa yesterday and today. She sleeps often, but also cries at times, and appears to respond minimally to staff. She is on Comfort Measures Only. She was talking last week, but the declined early this week. It has been clear that she's uncomfortable, and staff is keeping a close eye on her to ensure she is comfortable. Her son, who is local, will not be in to visit Rosa.
--- NOTE | 2020-01-22 15:36 | CHAPLAIN ---
Yesterday (01/20) Fr. Mehta from [place] visited with Rosa for anointing of the sick. She is listed as being affiliated with [facility] (part of [facility]). Rosa indicated agreement when asked if she wanted the structural architect to come to see her.
[2020-01-22] MEDS: LORazepam 2 MG/1 ML Oral Concentrate 0.5 MG PO (22:14)
--- NOTE | 2020-01-23 11:23 | CHAPLAIN ---
Rosa was sleeping when I stopped in this morning. She appears to be more comfortable yesterday when her face looked stressed even when she was sleeping. She has not been crying this morning according to morning report. Rosa is [employer], and Fr. Mehta came in on January 20 to offer Rosa anointing of the sick. No family members intend to visit but Care Management is in touch with Rosa's son.
--- NOTE | 2020-01-24 07:26 | NUR.NOTE ---
patient was skin assessed and given incontinence care. She is very uncomfortable. a clinician bolus was administered at 724. pastient relaxed soon after care was performed Nursing Note:
--- NOTE | 2020-01-24 11:23 | PDOC.CMPRO ---
Care Management Progress Note CM requested SWB1 status to start from 01/21/20, as decided previously when Rosa switched to SWB1 status for medication management. Dr. Mcnamara entered order and CM notified access.
[2020-01-24] MEDS: LORazepam 2 MG/1 ML Oral Concentrate 0.5 MG PO ×2 (17:53→19:52)
[2020-01-25] MEDS: LORazepam 2 MG/1 ML Oral Concentrate 0.5 MG PO (01:13)
--- NOTE | 2020-01-25 11:50 | W.PM.PROGNOT ---
Date of Service Date of service: 01/25/20 Time of Service: 11:50 Assessment and Plan Assessment and plan (1) Comfort measures only status: Start date: 01/25/20 Start time: 11:51 Status: Acute Assessment and plan: Actively dying, required atropine overnight for secretion. little urine output, unresponsive, continue current treatment plan above case discussed with Dr. Mcnamara who is in agreement. Subjective Subjective Patient reports: other Interval history since last seen: unresponsive. periods of apnea, not producing a lot of urine. Exam Narrative Exam Narrative: apenic, unresponsive, little urine output. Objective Objective Clinical Data: Vital Signs Temperature 37 C 01/21/20 09:59 Temperature Source Tympanic 01/21/20 09:59 Pulse 90 01/21/20 09:59 Pulse Rhythm Regular 01/21/20 09:24 Respiratory Rate 18 01/21/20 09:59 Respiratory Effort 01/25/20 09:45 Respiratory Depth Deep 01/25/20 09:45 Respiratory Pattern Bradypnea 01/25/20 09:45 Blood Pressure 102/67 01/21/20 09:59 Pulse Oximetry 93 L 01/21/20 09:59 Oxygen Delivery Method Room Air 01/24/20 16:38 Oxygen Flow Rate 0 01/24/20 16:38 Pain Level 2 01/24/20 07:35 Comment 01/21/20 07:38 Intake & Output 01/24/20 01/24/20 01/25/20 11:59 23:59 11:59 Intake Total 18.449 / 19.974 1.525 / 19.974 11.300 / 11.300 Output Total 125 / 125 150 / 150 Balance 18.449 / -105.026 -123.475 / -105.026 -138.700 / -138.700 Intake: IV 18.449 / 19.974 1.525 / 19.974 11.300 / 11.300 Output: Urine 125 / 125 150 / 150 Other: Urine Color Dark Flower Straw Yellow Urine Appearance Cloudy Clear Clear Comment Inserted for comfort measures as patient is nearing end of life. Entered using sterile technique, Patient was cleaned up[ and repositioned afterwards Voiding Methods Diaper Incontinent Laboratory Results COVID-19 PCR Negative (Negative) 01/20/20 09:45 Nasopharyn COVID-19 PCR Not Applicable 01/20/20 09:45 Ref Test Perform Site [place] [facility] 01/20/20 09:45
--- NOTE | 2020-01-26 14:33 | CHAPLAIN ---
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 She continues to be unresponsive today, but looks comfortable. No family members are expected to visit.
--- NOTE | 2020-01-28 09:54 | NUR.NOTE ---
Nursing Note: Per request of Dontrell (pt's son) items in safe to be mailed to him. Items in sealed envelope given to Cristela from Care Management to be mailed. Dontrell requested that clothing and other items be donated and Cristela reports that she will make arrangements for that.
--- NOTE | 2020-01-28 14:26 | DSE_ITS ---
Date of service: 01/28/20 Time of Service: 14:26 DS: Diagnosis Discharge Diagnosis (1) Dementia with behavioral disturbance: Status: Chronic (2) Acute UTI: Status: Acute Discharge Plan Disposition Patient Disposition: Condition: Poor Discharge Details Reason For Visit: ADVANCED DEMENTIA Admit Date/Time: 01/14/20 11:54 Admit Provider: Sarah Mcnamara Attending Provider: Raul Louis Primary Care Provider: Shan Gracia Hospital Course Hospital Course: This is a 74 year old female with PMHx of Alzheimer's dementia, anxiety, asthma, osteoarthritis, who was originally brought to [facility] ED for agitated/violent behavior at home, as well as worsening confusion and wandering behavior. She required sedation with haldol, ativan, and zyprexa in ED as well as physical restraints. She was treated for a UTI and was medically stable but was unable to be safely discharged back to home. case management was following closely and a bed was secured at the [facility] for acute inpatient richar-psychiatric care. She was transported to [facility] for medication management. 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 Since returning from the [facility] she continued to decline. She stopped eating. It was felt that she would not improve and another environmental change would not be in her best interest. Palliative care was following and it was decided that she would remain here for end of life ca re. Her son Dontrell was in agreement with the plan. she was transitioned to comfort care only and passed peacefully this morning at 6:50 am, pronounced by nursing staff at 6:55 am. Discharge Instructions Instructions: Dementia (GEN) Additional Instructions: expect some acute delirium secondary to environment change. routine custodial care and follow up. Discharge Data Cause of : Dementia Discharge Date/Time-TO BE ENTERED AT DEPARTURE: 01/28/20 06:50 DS: Data Vitals/I&O Vitals and I&O: Vital Signs Temperature 37 C 01/21/20 09:59 Temperature Source Tympanic 01/21/20 09:59 Pulse 90 01/21/20 09:59 Pulse Rhythm Regular 01/21/20 09:24 Respiratory Rate 18 01/21/20 09:59 Respiratory Effort 01/28/20 03:17 Respiratory Depth Deep 01/28/20 03:17 Respiratory Pattern Irregular 01/28/20 03:17 Blood Pressure 102/67 01/21/20 09:59 Pulse Oximetry 93 L 01/21/20 09:59 Oxygen Delivery Method Room Air 01/28/20 02:50 Oxygen Flow Rate 0 01/28/20 02:50 Pain Level 2 01/24/20 07:35 Comment 01/21/20 07:38 Intake & Output 01/27/20 01/28/20 01/28/20 23:59 11:59 23:59 Other: Urine Color Dark Flower Urine Appearance Sediment Sediment Comment taken out by [facility]. [facility] Medical History (Updated 01/25/20 @ 11:51 by Xiomara He NP) Anxiety (Chronic) Asthma (Chronic) Dementia (Chronic) Osteoarthritis (Chronic) Surgical History No significant past surgical history (Acute) Family History (Updated 11/02/19 @ 16:53 by Sarah Mcnamara MD) Other Patient unable to provide medical history Social History Smoking/Tobacco Use Status: Never Alcohol Intake: never Drug use: Never Substance use type: does not use Additional Social history: pt drowsy , unable to answer at this time
--- NOTE | 2020-01-28 14:32 | EXPE_ITS ---
Date of service: 01/28/20 Time of Service: 14:32 Discharge Sum: Prov Provider Consults: 01/18/20 08:55 Palliative Care Consult [CONS] Routine Consultation Status:: Follow-up needed Clarification:: Manage/follow per spec. Reason for consult:: goals of care 01/21/20 11:18 [employer] Supervisor Consult [CONS] Routine Consultation Status:: Follow-up needed Clarification:: Manage/follow per spec. Reason for consult:: end of life care, Discharge Sum: Diag PCOD Cause of : Dementia Contributing Factors (1) Dementia with behavioral disturbance: (2) Acute UTI: Discharge Sum: Summary Date and Time Admission Date: 01/13/2006/24/20 11:54
== END 2020-01-28 06:50 | disposition expired | DRG 57 ==
PROVIDERS: Nurse Practitioner Acute Care; Admitting Provider Internal Medicine; PCP Family Medicine; Visit Provider Family Medicine
DX: G30.9 Alzheimer's disease, unspecified (principal); F02.81 Dementia in other diseases classified elsewhere, unspecified severity, with behavioral disturbance; N39.0 Urinary tract infection, site not specified; Z51.5 Encounter for palliative care; Z66 Do not resuscitate; F41.9 Anxiety disorder, unspecified; J45.909 Unspecified asthma, uncomplicated; M19.90 Unspecified osteoarthritis, unspecified site; Z91.83 Wandering in diseases classified elsewhere; Z78.1 Physical restraint status
CPT/HCPCS: 97162; 99233; 99253; 99305; 99306; 99309; 99316; U0003; 73110; J3490